=== PATIENT | male | born 1975 | race Hispanic/Latino ===

== ENCOUNTER 2018-08-16 20:02 | Inpatient (IN) | payer MEDICARE, OTHER ==
[~2018-08-16] VITALS: Ht 182.9 cm; Wt 149.2 kg
[2018-08-16] MEDS ORDERED: SODIUM CHLORIDE 0.9% 1000ML 1,000 ML IV ONE ×2 (20:38→22:26)
[2018-08-16] MEDS ORDERED: METOPROLOL TARTRATE 1 MG/ML 5ML VIAL IV ONE ×3 (20:38→23:57)
[2018-08-16 20:43] LABS: BASOPHILS % (AUTO) 0.7 % (0.0-5.0); EOSINOPHILS % (AUTO) 2.1 % (0.0-8.0); HEMATOCRIT 48.7 % (42-54); LYMPHOCYTES % (AUTO) 30.8 % (21.0-51.0); MEAN CORPUSCULAR HEMOGLOBIN 29.5 pg (27.0-33.0); MEAN CORPUSCULAR HGB CONC 33.9 g/dL (32.0-36.0); MONOCYTES % (AUTO) 13.3 % (3.0-13.0); NEUTROPHILS % (AUTO) 53.1 % (40.0-77.0); PLATELET COUNT (AUTO) 201 K/uL (130-400); RED CELL DISTRIBUTION WIDTH 15.2 % (11.0-15.5); WHITE BLOOD COUNT (AUTO) 5.5 K/uL (4.8-10.8)
[2018-08-16 20:55] LABS: CREATININE 1.3 mg/dL (0.5-1.5); POTASSIUM 3.8 mmol/L (3.5-5.1)
[2018-08-16 20:57] LABS: PARTIAL THROMBOPLASTIN TIME 28.2 SEC (26.3-35.5); PROTHROMBIN TIME 10.5 SEC (9.6-11.6)
[2018-08-16 20:57] LABS: APPEARANCE,URINE Clear (CLEAR); BILIRUBIN,URINE Negative (NEGATIVE); COLOR,URINE Yellow (YELLOW); GLUCOSE, URINE (UA) >=1000 mg/dL (NEGATIVE); KETONES,URINE Negative (NEGATIVE); LEUKOCYTE ESTERASE ,URINE Negative (NEGATIVE); NITRATE,URINE Negative (NEGATIVE); OCCULT BLOOD,URINE Trace (NEGATIVE); PH,URINE 5.5 (5.0-8.0); PROTEIN,URINE POS 2+ (NEGATIVE); UROBILINOGEN,URINE 0.2 mg/dL (0.2-1.0)
[2018-08-16 21:05] LABS: TROPONIN I 0.06 ng/mL (0.00-0.06)
[2018-08-16 21:05] LABS: AMPHET/METH SCREEN,URINE NEGATIVE (NEGATIVE); BARBITURATE SCREEN, URINE NEGATIVE (NEGATIVE); BENZODIAZEPINES SCREEN,URINE NEGATIVE (NEGATIVE); CANNABINOID SCREEN,URINE NEGATIVE (NEGATIVE); COCAINE SCREEN,URINE NEGATIVE (NEGATIVE); OPIATE SCREEN,URINE NEGATIVE (NEGATIVE); PHENCYCLIDINE SCREEN,URINE NEGATIVE (NEGATIVE)
[2018-08-16 21:07] LABS: BACTERIA,URINE Few /HPF (None Seen); MUCUS,URINE None Seen LPF (None Seen); RBC,URINE 0-1 /HPF (0-1); SQUAMOUS EPITHELIAL CELL,UR Rare /HPF (0-2); WBC,URINE 0-1 /HPF (0-1); YEAST,URINE BUDDING Rare /HPF (None Seen)
[2018-08-16 21:07] LABS: ALBUMIN 3.2 g/dL (3.5-5.0); BILIRUBIN,TOTAL 0.3 mg/dL (0.2-1.0); TOTAL PROTEIN, SERUM 7.1 g/dL (6.0-8.3)
[2018-08-16 21:08] LABS: COARSE GRANULAR CASTS,URINE 0-2 /LPF (None Seen)
[2018-08-16 21:20] LABS: RAPID GROUP A STREP NEGATIVE (NEGATIVE)
[2018-08-16] MEDS ORDERED: LEVOFLOXACIN 500 MG/D5W 100 ML 100 ML ONE (21:31)
[2018-08-17] MEDS ORDERED: AMIODARONE HCL 50 MG/ML 3 ML VIAL ONE ×3 (01:09→01:15)
[2018-08-17] MEDS ORDERED: DEXTROSE 5%-WATER 500 ML IV ONE (01:26)
[2018-08-17] MEDS ORDERED: LABETALOL HCL 5 MG/ML 20ML VIAL IV ONE (03:04)
[2018-08-17 03:20] VITALS: BP 163/109
[2018-08-17] MEDS ORDERED: ONDANSETRON HCL MDV 20ML 2 MG/ML VIAL IVP PRN (03:30)
[2018-08-17] MEDS ORDERED: DEXTROSE 50%-WATER 50 ML DISP.SYRIN IV PRN (03:30)
[2018-08-17] MEDS ORDERED: GLUCAGON 1MG KIT 1 MG ML IM PRN (03:30)
[2018-08-17] MEDS ORDERED: SODIUM CHLORIDE 0.9% 1000ML 2,000 ML IV ONE (03:30)
[2018-08-17] MEDS ORDERED: SODIUM CHLORIDE 0.9% 1000ML 1,000 ML IV SCH ×2 (04:30→09:00)
[2018-08-17] MEDS ORDERED: LOSA100T20 PO (04:37)
[2018-08-17] MEDS ORDERED: METO50TA18 PO (04:37)
[2018-08-17 04:50] LABS: BASOPHILS % (AUTO) 0.6 % (0.0-5.0); EOSINOPHILS % (AUTO) 2.2 % (0.0-8.0); HEMATOCRIT 45.7 % (42-54); LYMPHOCYTES % (AUTO) 31.8 % (21.0-51.0); MEAN CORPUSCULAR HEMOGLOBIN 28.6 pg (27.0-33.0); MEAN CORPUSCULAR HGB CONC 32.8 g/dL (32.0-36.0); MEAN CORPUSCULAR VOLUME 87.3 fL (79-99); NEUTROPHILS % (AUTO) 46.4 % (40.0-77.0); PLATELET COUNT (AUTO) 172 K/uL (130-400); RED BLOOD CELL COUNT(AUTO) 5.23 MIL/uL (4.50-6.20); WHITE BLOOD COUNT (AUTO) 5.6 K/uL (4.8-10.8)
[2018-08-17 05:17] LABS: ALBUMIN 2.9 g/dL (3.5-5.0); BILIRUBIN,TOTAL 0.2 mg/dL (0.2-1.0); CRP QUANTITATIVE 13.5 mg/L (0.00-9.0); POTASSIUM 3.8 mmol/L (3.5-5.1); THYROID STIMULATING HORMONE 1.58 uIU/mL (0.36-3.74); TOTAL PROTEIN, SERUM 6.8 g/dL (6.0-8.3)
[2018-08-17 05:57] LABS: HEMOGLOBIN A1C 8.2 % (4.0-6.0)
[2018-08-17] MEDS: INSULIN HUMULIN R 100 UNIT/ML 3ML SQ SCH ×4 (06:15→22:14)
[2018-08-17 07:00] VITALS: BP 161/94
[2018-08-17] MEDS ORDERED: AMIODARONE HCL 900 MG in DEXTROSE 5%-WATER 500 ML IV SCH (07:45)
[2018-08-17] MEDS: LOSARTAN 100 MG TABLET PO SCH (10:09)
[2018-08-17] MEDS: METOPROLOL TARTRATE 50 MG TAB PO SCH ×2 (10:09→22:08)
[2018-08-17 11:00] VITALS: BP 146/117
[2018-08-17] MEDS: LABETALOL HCL 5 MG/ML 20ML VIAL IV PRN ×2 (11:53→23:20)
[2018-08-17 16:00] VITALS: BP 143/103
[2018-08-17] MEDS ORDERED: ENOXAPARIN SODIUM 80 MG/0.8 ML SQ SCH (16:30)
[2018-08-17 19:21] VITALS: BP 162/116
[2018-08-17] MEDS ORDERED: METOPROLOL TARTRATE 50 MG TAB PO SCH (21:00)
[2018-08-17] MEDS: RIVAROXABAN 15 MG TABLET PO SCH (22:08)
[2018-08-17 23:45] VITALS: BP 155/109
[2018-08-18] VITALS (7 sets, daily range): BP systolic 142–171; BP diastolic 94–123
[2018-08-18] MEDS: ACETAMINOPHEN 325 MG TAB PO PRN ×2 (01:20→21:41)
[2018-08-18 04:30] LABS: BASOPHILS % (AUTO) 0.4 % (0.0-5.0); EOSINOPHILS % (AUTO) 1.6 % (0.0-8.0); HEMATOCRIT 46.9 % (42-54); LYMPHOCYTES % (AUTO) 24.9 % (21.0-51.0); MEAN CORPUSCULAR HGB CONC 33.8 g/dL (32.0-36.0); MEAN CORPUSCULAR VOLUME 88.7 fL (79-99); MONOCYTES % (AUTO) 14.2 % (3.0-13.0); NEUTROPHILS % (AUTO) 58.9 % (40.0-77.0); PLATELET COUNT (AUTO) 199 K/uL (130-400); RED BLOOD CELL COUNT(AUTO) 5.29 MIL/uL (4.50-6.20); RED CELL DISTRIBUTION WIDTH 15.4 % (11.0-15.5); WHITE BLOOD COUNT (AUTO) 7.2 K/uL (4.8-10.8)
[2018-08-18 04:46] LABS: ALBUMIN 3.1 g/dL (3.5-5.0); BILIRUBIN,TOTAL 0.3 mg/dL (0.2-1.0); CREATININE 0.9 mg/dL (0.5-1.5); POTASSIUM 3.9 mmol/L (3.5-5.1); TOTAL PROTEIN, SERUM 7.4 g/dL (6.0-8.3)
[2018-08-18] MEDS: INSULIN HUMULIN R 100 UNIT/ML 3ML SQ SCH ×4 (06:03→21:00)
[2018-08-18] MEDS: LOSARTAN 100 MG TABLET PO SCH (08:45)
[2018-08-18] MEDS: RIVAROXABAN 15 MG TABLET PO SCH ×2 (08:45→21:16)
[2018-08-18] MEDS: METOPROLOL TARTRATE 50 MG TAB PO SCH ×2 (08:45→21:16)
[2018-08-18] MEDS ORDERED: IOHEXOL 350 MG/ML 100ML INFUS..BTL IV ONE (15:11)
[2018-08-18] MEDS: LABETALOL HCL 5 MG/ML 20ML VIAL IV PRN (17:01)
[2018-08-19] VITALS (7 sets, daily range): BP systolic 107–174; BP diastolic 84–110
[2018-08-19 03:29] LABS: BASOPHILS % (AUTO) 0.4 % (0.0-5.0); HEMATOCRIT 44.9 % (42-54); MEAN CORPUSCULAR HEMOGLOBIN 29.1 pg (27.0-33.0); MEAN CORPUSCULAR HGB CONC 33.4 g/dL (32.0-36.0); MEAN CORPUSCULAR VOLUME 87.2 fL (79-99); MONOCYTES % (AUTO) 14.9 % (3.0-13.0); NEUTROPHILS % (AUTO) 55.7 % (40.0-77.0); PLATELET COUNT (AUTO) 171 K/uL (130-400); RED BLOOD CELL COUNT(AUTO) 5.15 MIL/uL (4.50-6.20); WHITE BLOOD COUNT (AUTO) 7.3 K/uL (4.8-10.8)
[2018-08-19 03:40] LABS: ALBUMIN 3.1 g/dL (3.5-5.0); BILIRUBIN,TOTAL 0.7 mg/dL (0.2-1.0); CREATININE 0.9 mg/dL (0.5-1.5); INR 1.12 (0.85-1.15); PARTIAL THROMBOPLASTIN TIME 35.9 SEC (26.3-35.5); POTASSIUM 3.7 mmol/L (3.5-5.1); PROTHROMBIN TIME 11.7 SEC (9.6-11.6); TOTAL PROTEIN, SERUM 7.4 g/dL (6.0-8.3)
[2018-08-19] MEDS: INSULIN HUMULIN R 100 UNIT/ML 3ML SQ SCH ×4 (06:28→21:00)
[2018-08-19] MEDS: LOSARTAN 100 MG TABLET PO SCH (08:49)
[2018-08-19] MEDS: METOPROLOL TARTRATE 50 MG TAB PO SCH ×2 (08:49→20:24)
[2018-08-19] MEDS: RIVAROXABAN 15 MG TABLET PO SCH (08:49)
[2018-08-19] MEDS: HYDROCHLOROTHIAZIDE 25 MG TABLET PO SCH (11:28)
[2018-08-19] MEDS: ACETAMINOPHEN 325 MG TAB PO PRN (11:29)
[2018-08-19] MEDS ORDERED: REGADENOSON 0.4 MG/5 ML PF SYG IVP SCH (12:30)
[2018-08-19] MEDS ORDERED: AMLODIPINE BESYLATE 5 MG TAB PO SCH (18:30)
[2018-08-20 03:00] VITALS: BP 145/103
[2018-08-20 04:14] LABS: BASOPHILS % (AUTO) 0.9 % (0.0-5.0); EOSINOPHILS % (AUTO) 3.1 % (0.0-8.0); HEMATOCRIT 45.6 % (42-54); LYMPHOCYTES % (AUTO) 25.8 % (21.0-51.0); MEAN CORPUSCULAR HEMOGLOBIN 28.9 pg (27.0-33.0); MEAN CORPUSCULAR HGB CONC 33.3 g/dL (32.0-36.0); MEAN CORPUSCULAR VOLUME 86.9 fL (79-99); NEUTROPHILS % (AUTO) 59.2 % (40.0-77.0); NUCLEATED RED BLOOD CELLS 0.1 % (0.0-0.19); PLATELET COUNT (AUTO) 192 K/uL (130-400); RED BLOOD CELL COUNT(AUTO) 5.25 MIL/uL (4.50-6.20); WHITE BLOOD COUNT (AUTO) 6.5 K/uL (4.8-10.8)
[2018-08-20 04:33] LABS: BILIRUBIN,TOTAL 0.7 mg/dL (0.2-1.0); CREATININE 0.8 mg/dL (0.5-1.5); POTASSIUM 3.4 mmol/L (3.5-5.1); TOTAL PROTEIN, SERUM 7.4 g/dL (6.0-8.3)
[2018-08-20] MEDS: INSULIN HUMULIN R 100 UNIT/ML 3ML SQ SCH (05:35)
[2018-08-20 07:00] VITALS: BP 174/104
[2018-08-20] MEDS: HYDROCHLOROTHIAZIDE 25 MG TABLET PO SCH (07:46)
[2018-08-20] MEDS: METOPROLOL TARTRATE 50 MG TAB PO SCH (07:46)
[2018-08-20] MEDS: LOSARTAN 100 MG TABLET PO SCH (07:46)
[2018-08-20 08:50] VITALS: BP 154/97
[2018-08-20] MEDS ORDERED: METF-444 PO (08:53)
[2018-08-20] MEDS ORDERED: AMLODIPINE BESYLATE 5 MG TAB PO SCH (09:00)
[2018-08-20] MEDS ORDERED: HYDROCHLOROTHIAZIDE 25 MG TABLET PO SCH (09:00)
[2018-08-20] MEDS ORDERED: RIVAROXABAN 20 MG TABLET PO SCH (17:00)
== END 2018-08-20 11:25 | disposition home or self-care (01) | DRG 292 ==
LOC: EDH 20:02 → EDHIP 21:50 → 3AH 23:44 → EDHIP 08-17 00:12 → 2DH 08-17 01:15
PROVIDERS: ADMIT Hospitalist; ATTEND Hospitalist
DX: I11.0 Hypertensive heart disease with heart failure (principal); E87.2 Acidosis; Z68.41 Body mass index [BMI] 40.0-44.9, adult; I48.92 Unspecified atrial flutter; I48.91 Unspecified atrial fibrillation; I50.40 Unspecified combined systolic (congestive) and diastolic (congestive) heart failure; R00.0 Tachycardia, unspecified; E11.65 Type 2 diabetes mellitus with hyperglycemia; E66.01 Morbid (severe) obesity due to excess calories; I25.10 Atherosclerotic heart disease of native coronary artery without angina pectoris
CPT/HCPCS: 36415; 71045; 71275; 78452; 80053; 80061; 80305; 81001; 82550; 82948; 83036; 83605; 83874; 84443; 84484; 85025; 85610; 85730; 86140; 87040; 87088; 87804; 87880; 93005; 93017; 93306; 93970; 96374; A9500; J0282; J1650; J1815; J1956; J2785; J3490; J7030; J7060; Q9967

== ENCOUNTER 2019-01-28 12:53 | Emergency (ER) | payer OTHER ==
[~2019-01-28 12:53] MED LIST: LOSA100T58 PO; METF-444 PO; METO50TA18 PO
== END 2019-01-28 14:49 | disposition home or self-care (01) ==
LOC: EDH 12:53
DX: S13.8XXA Sprain of joints and ligaments of other parts of neck, initial encounter (principal); I10 Essential (primary) hypertension; Z79.899 Other long term (current) drug therapy; V59.49XA Driver of pick-up truck or van injured in collision with other motor vehicles in traffic accident, initial encounter; Y93.89 Activity, other specified; Y92.89 Other specified places as the place of occurrence of the external cause; Y99.8 Other external cause status
CPT/HCPCS: 72040

== ENCOUNTER 2019-02-12 20:57 | Emergency (ER) | payer OTHER ==
[2019-02-12 21:13] LABS: BASOPHILS % (AUTO) 0.8 % (0.0-5.0); EOSINOPHILS % (AUTO) 1.5 % (0.0-8.0); HEMATOCRIT 52.5 % (42-54); LYMPHOCYTES % (AUTO) 36.8 % (21.0-51.0); MEAN CORPUSCULAR HEMOGLOBIN 29.6 pg (27.0-33.0); MEAN CORPUSCULAR VOLUME 86.9 fL (79-99); MONOCYTES % (AUTO) 10.9 % (3.0-13.0); NUCLEATED RED BLOOD CELLS 0.1 % (0.0-0.19); PLATELET COUNT (AUTO) 201 K/uL (130-400); RED BLOOD CELL COUNT(AUTO) 6.04 MIL/uL (4.50-6.20); WHITE BLOOD COUNT (AUTO) 7.3 K/uL (4.8-10.8)
[2019-02-12] MEDS ORDERED: LEVOFLOXACIN 500 MG/D5W 100 ML 100 ML ONE (21:13)
[2019-02-12] MEDS ORDERED: IBUPROFEN 600 MG TABLET ONE (21:13)
[2019-02-12 21:25] LABS: CARBON DIOXIDE 33 mmol/L (21-32); CHLORIDE 98 mmol/L (101-111); CREATININE 1.1 mg/dL (0.5-1.5); GLOMERULAR FILTR. RATE CALC 78 mL/min (>60); GLUCOSE,RANDOM 238 mg/dL (70-105); SODIUM SERUM 137 mmol/L (136-145); UREA NITROGEN, BLOOD 20 mg/dL (7-18)
[2019-02-12 21:27] LABS: INR 1.1 (0.85-1.15); PARTIAL THROMBOPLASTIN TIME 30.1 SEC (26.3-35.5); PROTHROMBIN TIME 11.5 SEC (9.6-11.6)
[2019-02-12 21:29] LABS: ALANINE AMINOTRANSFERASE 71 U/L (12-78); ALBUMIN 3.6 g/dL (3.5-5.0); ALCOHOL, BLOOD < 3 mg/dL (0-10); ASPARTATE AMINOTRANSFERASE 34 U/L (10-37); BILIRUBIN,TOTAL 0.3 mg/dL (0.2-1.0); TOTAL PROTEIN, SERUM 8.2 g/dL (6.0-8.3)
[2019-02-12 21:46] LABS: APPEARANCE,URINE Clear (CLEAR); BILIRUBIN,URINE Negative (NEGATIVE); COLOR,URINE Yellow (YELLOW); GLUCOSE, URINE (UA) >=1000 mg/dL (NEGATIVE); KETONES,URINE Negative (NEGATIVE); LEUKOCYTE ESTERASE ,URINE Negative (NEGATIVE); NITRATE,URINE Negative (NEGATIVE); OCCULT BLOOD,URINE Negative (NEGATIVE); PH,URINE 6.5 (5.0-8.0); PROTEIN,URINE POS 2+ mg/dL (NEGATIVE); UROBILINOGEN,URINE 0.2 mg/dL (0.2-1.0)
[2019-02-12 21:53] LABS: AMPHET/METH SCREEN,URINE NEGATIVE (NEGATIVE); BARBITURATE SCREEN, URINE NEGATIVE (NEGATIVE); BENZODIAZEPINES SCREEN,URINE NEGATIVE (NEGATIVE); CANNABINOID SCREEN,URINE NEGATIVE (NEGATIVE); COCAINE SCREEN,URINE NEGATIVE (NEGATIVE); OPIATE SCREEN,URINE NEGATIVE (NEGATIVE); PHENCYCLIDINE SCREEN,URINE NEGATIVE (NEGATIVE)
[2019-02-12 21:54] LABS: BACTERIA,URINE Rare /HPF (None Seen); RBC,URINE 0-1 /HPF (0-1); SQUAMOUS EPITHELIAL CELL,UR None Seen /HPF (0-2); WBC,URINE 0-1 /HPF (0-1)
[2019-02-12 22:03] LABS: T4 (THYROXINE) 6.1 ug/dL (4.7-13.3); THYROID STIMULATING HORMONE 1.99 uIU/mL (0.36-3.74)
[2019-02-12] MEDS ORDERED: METOPROLOL TARTRATE 1 MG/ML 5ML VIAL IV ONE (23:05)
== END 2019-02-12 23:40 | disposition home or self-care (01) ==
LOC: EDH 20:57
DX: I10 Essential (primary) hypertension (principal); E11.65 Type 2 diabetes mellitus with hyperglycemia; E86.0 Dehydration; R00.0 Tachycardia, unspecified; R50.9 Fever, unspecified; Z79.899 Other long term (current) drug therapy
CPT/HCPCS: 36415; 71045; 80053; 80305; 81001; 83605 ×2; 84436; 84443; 84484; 85025; 85610; 85730; 87040; 87088; 87804 ×2; 93005; 96365; 96366; 96375; 99284; G0480; J1956; J3490

== ENCOUNTER 2019-07-14 04:02 | Inpatient (IN) | payer OTHER ==
[~2019-07-14] VITALS: Ht 180.3 cm; Wt 145.5 kg
[2019-07-14] MEDS ORDERED: ASPIRIN 81MG TAB.CHEW ONE (04:32)
[2019-07-14] MEDS ORDERED: METOPROLOL TARTRATE 1 MG/ML 5ML VIAL IV ONE ×2 (04:32→05:52)
[2019-07-14 04:34] LABS: BASOPHILS % (AUTO) 1.1 % (0.0-5.0); EOSINOPHILS % (AUTO) 2.2 % (0.0-8.0); HEMATOCRIT 52.4 % (42-54); LYMPHOCYTES % (AUTO) 38.1 % (21.0-51.0); MEAN CORPUSCULAR HEMOGLOBIN 30.3 pg (27.0-33.0); MONOCYTES % (AUTO) 12.8 % (3.0-13.0); NEUTROPHILS % (AUTO) 45.8 % (40.0-77.0); NUCLEATED RED BLOOD CELLS 0.1 % (0.0-0.19); PLATELET COUNT (AUTO) 190 K/uL (130-400); RED BLOOD CELL COUNT(AUTO) 5.89 MIL/uL (4.50-6.20); RED CELL DISTRIBUTION WIDTH 13.3 % (11.0-15.5); WHITE BLOOD COUNT (AUTO) 7.3 K/uL (4.8-10.8)
[2019-07-14 04:39] LABS: CREATININE 0.9 mg/dL (0.5-1.5); POTASSIUM 4.4 mmol/L (3.5-5.1)
[2019-07-14 04:41] LABS: INR 0.95 (0.85-1.15); PARTIAL THROMBOPLASTIN TIME 26.1 SEC (26.3-35.5)
[2019-07-14 04:43] LABS: ALBUMIN 3.3 g/dL (3.5-5.0); BILIRUBIN,TOTAL 0.4 mg/dL (0.2-1.0)
[2019-07-14 05:00] LABS: B-TYPE NATRIURETIC PEPTIDE 62 pg/mL (0-100)
[2019-07-14] MEDS ORDERED: DILTIAZEM HCL 125 MG/25 ML VIAL IV ONE (05:58)
[2019-07-14] MEDS ORDERED: SODIUM CHLORIDE 0.9% 100 ML IV ONE (05:59)
[2019-07-14] MEDS ORDERED: METOPROLOL TARTRATE 1 MG/ML 5ML VIAL IV PRN (06:45)
[2019-07-14] MEDS ORDERED: ONDANSETRON HCL 4 MG/2 ML VIAL IV PRN (06:45)
[2019-07-14] MEDS ORDERED: NITROGLYCERIN 0.4 MG SL TAB SL PRN (06:45)
[2019-07-14 07:13] LABS: HEMOGLOBIN A1C 8.6 % (4.0-6.0)
[2019-07-14 07:22] LABS: CHOLESTEROL 235 mg/dL (<200); HDL CHOLESTEROL 16 mg/dL (29-71); LDL DIRECT 93 mg/dL (0-99); TRIGLYCERIDES 1119 mg/dL (30-200)
[2019-07-14] MEDS: INSULIN HUMULIN R 100 UNIT/ML 3ML SQ SCH ×4 (07:30→20:49)
[2019-07-14] MEDS ORDERED: ATORVASTATIN CALCIUM 20 MG TABLET ONE (07:41)
[2019-07-14] MEDS ORDERED: FAMOTIDINE 20MG TAB 20 MG TAB ONE (07:41)
[2019-07-14] MEDS ORDERED: ASPIRIN 325 MG TABLET ONE (07:41)
[2019-07-14] MEDS ORDERED: ENOXAPARIN SODIUM 40 MG/0.4 ML SYRINGE SQ ONE (07:42)
[2019-07-14] MEDS ORDERED: INSULIN HUMULIN R 100 UNIT/ML 3ML ONE (07:43)
[2019-07-14] MEDS: ENOXAPARIN SODIUM 40 MG/0.4 ML SYRINGE SQ SCH (09:00)
[2019-07-14] MEDS: FAMOTIDINE 20MG TAB 20 MG TAB PO SCH ×2 (09:00→20:44)
[2019-07-14] MEDS: ASPIRIN 325 MG TABLET PO SCH (09:00)
[2019-07-14] MEDS ORDERED: ACETAMINOPHEN 325 MG TAB ONE (12:39)
[2019-07-14 15:16] VITALS: BP 156/99
[2019-07-14] MEDS ORDERED: HYDR25TA PO (15:38)
[2019-07-14 16:00] VITALS: BP 168/103
[2019-07-14] MEDS: SODIUM CHLORIDE 0.9% 1000ML 1,000 ML IV SCH (16:59)
[2019-07-14] MEDS: DILTIAZEM 125MG+100 ML NS 125 ML IV PRN (17:00)
[2019-07-14] MEDS: LOSARTAN 100 MG TABLET PO SCH (17:27)
[2019-07-14] MEDS ORDERED: HYDROCHLOROTHIAZIDE 25 MG TABLET PO SCH (19:10)
[2019-07-14] MEDS ORDERED: LOSARTAN 100 MG TABLET PO SCH (19:10)
--- NOTE | 2019-07-14 19:30 | NUR ---
PT HAS BEEN ASSESSED AND NOTED TO BE ON CARDIZEM DRIP AND IN ATRIAL FLUTTER.
[2019-07-14 19:47] VITALS: BP 151/92
[2019-07-14] MEDS: ATORVASTATIN CALCIUM 20 MG TABLET PO SCH (20:44)
[2019-07-14] MEDS: METOPROLOL TARTRATE 50 MG TAB PO SCH (20:45)
[2019-07-14 23:46] VITALS: BP 122/80
--- NOTE | 2019-07-15 01:25 | NUR ---
ETL SOFTWARE ENGINEER ETHEL ADVISED NURSING STAFF OF PT IN A FLUTTER BUT THE HEART RATE DOWN TO 40'S AND 50'S. CARDIZEM DRIP WAS STOPPED AND WILL MONITOR PT.
--- NOTE | 2019-07-15 01:35 | NUR ---
HR RATE UP TO 70'S AND CARDIZEM DRIP REMAINS OFF. PT REMAINS SLEEPING.
--- NOTE | 2019-07-15 02:20 | NUR ---
PT IS RESTING COMFORTABLY AND WAS ADVISED OF DRIP OFF FOR NOW AND VERBALIZED UNDERSTANDING.
[2019-07-15 04:09] LABS: BASOPHILS % (AUTO) 1.3 % (0.0-5.0); EOSINOPHILS % (AUTO) 2.3 % (0.0-8.0); HEMATOCRIT 52.2 % (42-54); LYMPHOCYTES % (AUTO) 38.2 % (21.0-51.0); MEAN CORPUSCULAR HGB CONC 34.4 g/dL (32.0-36.0); MEAN CORPUSCULAR VOLUME 87.2 fL (79-99); MONOCYTES % (AUTO) 11.4 % (3.0-13.0); NEUTROPHILS % (AUTO) 46.8 % (40.0-77.0); NUCLEATED RED BLOOD CELLS 0.1 % (0.0-0.19); PLATELET COUNT (AUTO) 244 K/uL (130-400); RED BLOOD CELL COUNT(AUTO) 5.98 MIL/uL (4.50-6.20); RED CELL DISTRIBUTION WIDTH 13.8 % (11.0-15.5); WHITE BLOOD COUNT (AUTO) 7.4 K/uL (4.8-10.8)
[2019-07-15 04:31] LABS: ALBUMIN 3.4 g/dL (3.5-5.0); BILIRUBIN,TOTAL 0.8 mg/dL (0.2-1.0); POTASSIUM 4.3 mmol/L (3.5-5.1); THYROID STIMULATING HORMONE 2.16 uIU/mL (0.36-3.74); TOTAL PROTEIN, SERUM 8.1 g/dL (6.0-8.3)
--- NOTE | 2019-07-15 04:40 | NUR ---
DEVAN BEAUCHAMP PRODUCTION STAFF WORKER WAS NOTIFIED OF PT'S EKG CHANGES AND CARDIZEM DRIP OFF AND STILL OFF DUE TO A FLUTTER IN 30'S. ORDER FOR CARDIOLOGY CONSULT AND 2D ECHO NOTED.
[2019-07-15 07:00] VITALS: BP 147/88
[2019-07-15] MEDS: INSULIN HUMULIN R 100 UNIT/ML 3ML SQ SCH ×4 (07:30→20:53)
[2019-07-15] MEDS: METOPROLOL TARTRATE 50 MG TAB PO SCH ×2 (08:50→20:49)
[2019-07-15] MEDS: ASPIRIN 325 MG TABLET PO SCH (08:50)
[2019-07-15] MEDS: HYDROCHLOROTHIAZIDE 25 MG TABLET PO SCH (08:50)
[2019-07-15] MEDS: FAMOTIDINE 20MG TAB 20 MG TAB PO SCH ×2 (08:51→20:49)
[2019-07-15] MEDS: FENOFIBRATE NANOCRYSTALLIZED 48 MG TAB PO SCH (08:51)
[2019-07-15] MEDS: LOSARTAN 100 MG TABLET PO SCH (08:51)
[2019-07-15] MEDS: ENOXAPARIN SODIUM 40 MG/0.4 ML SYRINGE SQ SCH (08:52)
[2019-07-15] MEDS: SODIUM CHLORIDE 0.9% 1000ML 1,000 ML IV SCH ×3 (09:32→22:15)
[2019-07-15 11:00] VITALS: BP 150/97
[2019-07-15] MEDS ORDERED: DILTIAZEM 125MG+100 ML NS 125 ML IV PRN (11:30)
[2019-07-15] MEDS ORDERED: SODIUM CHLORIDE 0.9% 1000ML 1,000 ML IV SCH (12:38)
[2019-07-15 16:00] VITALS: BP 161/87
--- NOTE | 2019-07-15 19:40 | NUR ---
ASSESSMENT AWAKE. UP IN CHAIR. BROTHER AT BEDSIDE. DENIES PAIN. REMAINS ON CARDIZEM DRIP 5MG/HR. ASSESSMENT COMPLETED SEE FLOW SHEET. Addendum: 07/15/19 at 2235 by JOEY ALY RN RN Amended: Links added.
[2019-07-15 19:42] VITALS: BP 151/75
[2019-07-15] MEDS: ATORVASTATIN CALCIUM 20 MG TABLET PO SCH (20:49)
[2019-07-15 23:36] VITALS: BP 144/97
[2019-07-16] VITALS (11 sets, daily range): BP systolic 122–175; BP diastolic 70–119
[2019-07-16] MEDS: INSULIN HUMULIN R 100 UNIT/ML 3ML SQ SCH ×4 (03:40→21:19)
[2019-07-16] MEDS: SODIUM CHLORIDE 0.9% 1000ML 1,000 ML IV SCH ×2 (05:07→17:45)
[2019-07-16] MEDS: HYDROCHLOROTHIAZIDE 25 MG TABLET PO SCH (08:55)
[2019-07-16] MEDS: FAMOTIDINE 20MG TAB 20 MG TAB PO SCH ×2 (08:55→20:10)
[2019-07-16] MEDS: FENOFIBRATE NANOCRYSTALLIZED 48 MG TAB PO SCH (08:55)
[2019-07-16] MEDS: ASPIRIN 325 MG TABLET PO SCH (08:55)
[2019-07-16] MEDS: LOSARTAN 100 MG TABLET PO SCH (08:55)
[2019-07-16] MEDS: METOPROLOL TARTRATE 50 MG TAB PO SCH ×2 (08:55→20:10)
[2019-07-16] MEDS: ENOXAPARIN SODIUM 40 MG/0.4 ML SYRINGE SQ SCH (09:00)
[2019-07-16] MEDS: DILTIAZEM 125MG+100 ML NS 125 ML IV PRN ×2 (10:02→10:05)
[2019-07-16] MEDS: FENTANYL CITRATE PF 50 MCG/1 ML 2ML VIAL IVP SCH ×5 (13:00→15:11)
[2019-07-16] MEDS: LIDOCAINE HCL 2% VISCOUS 15 ML UDCUP PO SCH ×2 (13:00→13:30)
[2019-07-16] MEDS: MIDAZOLAM HCL 1 MG/ML 2ML VIAL IVPB SCH ×2 (13:00→14:30)
[2019-07-16] MEDS ORDERED: MIDAZOLAM HCL 1 MG/ML 2ML VIAL ONE (13:12)
[2019-07-16] MEDS ORDERED: FENTANYL CITRATE PF 50 MCG/1 ML 2ML VIAL ONE (13:17)
--- NOTE | 2019-07-16 14:04 | NUR ---
DC PLAN PATIENT LIVES WITH BROTHER. PATIENT RECENTLY FIRED AND LOST INSURNACE. GAVE LOW INCOME PACKET. PATIENT INDEPENDENT ABLE TO PERFORM ADL'S. PATIENT HAS NO SERVICES OR DME'S. FEELS SAFE TO RETURN HOME. Addendum: 07/16/19 at 1408 by MARY REID RN CM Amended: Links added.
--- NOTE | 2019-07-16 14:30 | NUR ---
JO PROCEDURE PERFORMED BY DR Connor JENKINS AND TOLERATED PROCEDURE. END OF PROCEDURE AT 1400. PATIENT RECOVERED IN 229-1. REPORT GIVEN TO Marian FERREIRA RN. AWAKE AND ALERT WITH NO C/O PAIN.
[2019-07-16] MEDS: ATORVASTATIN CALCIUM 20 MG TABLET PO SCH (20:10)
[2019-07-17] VITALS (13 sets, daily range): BP systolic 125–157; BP diastolic 58–120
[2019-07-17] MEDS: SODIUM CHLORIDE 0.9% 1000ML 1,000 ML IV SCH ×2 (04:15→09:57)
--- NOTE | 2019-07-17 05:41 | NUR ---
Patient remains Aflutter currently on Cardizem drip without complications.
--- NOTE | 2019-07-17 05:41 | NUR ---
orders New orders for lab draw in am
[2019-07-17 06:05] LABS: HEMATOCRIT 49.3 % (42-54); MEAN CORPUSCULAR HGB CONC 34.7 g/dL (32.0-36.0); MEAN CORPUSCULAR VOLUME 86.6 fL (79-99); PLATELET COUNT (AUTO) 212 K/uL (130-400); RED CELL DISTRIBUTION WIDTH 13.4 % (11.0-15.5); WHITE BLOOD COUNT (AUTO) 5.3 K/uL (4.8-10.8)
[2019-07-17 06:13] LABS: CREATININE 0.8 mg/dL (0.5-1.5); POTASSIUM 3.6 mmol/L (3.5-5.1)
[2019-07-17] MEDS: INSULIN HUMULIN R 100 UNIT/ML 3ML SQ SCH ×3 (06:20→16:30)
[2019-07-17 06:22] LABS: INR 1.02 (0.85-1.15); PROTHROMBIN TIME 10.7 SEC (9.6-11.6)
[2019-07-17 07:21] LABS: EOSINOPHILS % (MANUAL) 1 % (1-6); LYMPHOCYTES % (MANUAL) 33 % (22-44); MAN.DIFF COMMENT-IMPRESSION MANUAL DIFFERENTIAL; MONOCYTES % (MANUAL) 14 % (2-9); PLATELET MORPHOLOGY COMMENT ADEQUATE; REACTIVE LYMPHOCYTES 1 % (0-0); SEGMENTED NEUTROPHILS % 51 % (40-70)
[2019-07-17] MEDS: LOSARTAN 100 MG TABLET PO SCH (08:41)
[2019-07-17] MEDS: ASPIRIN 325 MG TABLET PO SCH (08:41)
[2019-07-17] MEDS: FENOFIBRATE NANOCRYSTALLIZED 48 MG TAB PO SCH (08:42)
[2019-07-17] MEDS: METOPROLOL TARTRATE 50 MG TAB PO SCH ×2 (08:42→20:34)
[2019-07-17] MEDS: HYDROCHLOROTHIAZIDE 25 MG TABLET PO SCH (08:42)
[2019-07-17] MEDS: FAMOTIDINE 20MG TAB 20 MG TAB PO SCH ×2 (08:42→20:34)
[2019-07-17] MEDS: ENOXAPARIN SODIUM 40 MG/0.4 ML SYRINGE SQ SCH (08:42)
[2019-07-17] MEDS: DILTIAZEM 125MG+100 ML NS 125 ML IV PRN (09:02)
--- NOTE | 2019-07-17 12:10 | NUR ---
PATIENT TAKEN TO SHIP PROPELLER FINISHER FOR ABLATION BY DR VELIZ
[2019-07-17] MEDS ORDERED: HEPARIN SODIUM 1000UNIT/ML 10ML VIAL ONE (12:29)
[2019-07-17] MEDS ORDERED: LIDOCAINE HCL 2% 20ML ONE (12:29)
[2019-07-17] MEDS ORDERED: MIDAZOLAM HCL 1 MG/ML 2ML VIAL ONE ×5 (12:56→14:27)
[2019-07-17] MEDS ORDERED: MEPERIDINE-PF 25 MG/ML SYG ONE ×5 (12:57→14:27)
--- NOTE | 2019-07-17 16:00 | NUR ---
PATIENT ARRIVED FROM DIESEL PILE HAMMER OPERATOR AT THIS TIME, POST ABLATION BY DR VELIZ; PATIENT AWAKE, ALERT, ORIENTED, AND ORDERED BEDREST X4 HOURS; DRESSING TO RIGHT GROIN CLEAN, DRY AND INTACT WITH NO BLEEDING OR BRUISING NOTED; WILL CONTINUE TO MONITOR; NO COMPLAINTS FROM PATIENT AT THIS TIME
[2019-07-17] MEDS: ATORVASTATIN CALCIUM 20 MG TABLET PO SCH (20:34)
[2019-07-18] VITALS (7 sets, daily range): BP systolic 153–176; BP diastolic 95–124
[2019-07-18] MEDS: INSULIN HUMULIN R 100 UNIT/ML 3ML SQ SCH ×4 (03:17→16:30)
[2019-07-18 04:31] LABS: BASOPHILS % (AUTO) 0.7 % (0.0-5.0); EOSINOPHILS % (AUTO) 1.4 % (0.0-8.0); LYMPHOCYTES % (AUTO) 26.9 % (21.0-51.0); MEAN CORPUSCULAR HEMOGLOBIN 30.1 pg (27.0-33.0); MEAN CORPUSCULAR VOLUME 88.4 fL (79-99); MONOCYTES % (AUTO) 12.6 % (3.0-13.0); NEUTROPHILS % (AUTO) 58.4 % (40.0-77.0); PLATELET COUNT (AUTO) 171 K/uL (130-400); RED BLOOD CELL COUNT(AUTO) 5.09 MIL/uL (4.50-6.20); RED CELL DISTRIBUTION WIDTH 13.2 % (11.0-15.5)
[2019-07-18 04:40] LABS: POTASSIUM 3.9 mmol/L (3.5-5.1)
[2019-07-18] MEDS: METOPROLOL TARTRATE 50 MG TAB PO SCH (07:54)
[2019-07-18] MEDS: LOSARTAN 100 MG TABLET PO SCH (07:54)
[2019-07-18] MEDS: HYDROCHLOROTHIAZIDE 25 MG TABLET PO SCH (07:54)
[2019-07-18] MEDS: FENOFIBRATE NANOCRYSTALLIZED 48 MG TAB PO SCH (07:54)
[2019-07-18] MEDS: FAMOTIDINE 20MG TAB 20 MG TAB PO SCH (07:54)
--- NOTE | 2019-07-18 10:46 | NUR ---
DR. Juani VELIZ IN ROOM SPEAKING WITH PT. RE:PLAN OF CARE; QUESTIONS ANSWERED BY DR. VELIZ. DR. VELIZ MADE AWARE RE:VS TREND, LATEST BP AND MEDICATION REGIMEN. NO NEW ORDERS RECEIVED FOR BP MANAGEMENT AT THIS TIME.
[2019-07-18] MEDS ORDERED: APIXABAN 5 MG TABLET PO SCH (11:00)
[2019-07-18] MEDS ORDERED: AMLODIPINE BESYLATE 5 MG TAB PO SCH (11:30)
[2019-07-18] MEDS ORDERED: ATOR20TA65 PO (16:18)
[2019-07-18] MEDS ORDERED: AMLO5TAB4 PO (16:18)
[2019-07-18] MEDS ORDERED: FENO48TA15 PO (16:18)
[2019-07-18] MEDS ORDERED: IBUPROFEN 600 MG TABLET PO SCH (17:00)
[2019-07-18] MEDS ORDERED: IBUPROFEN 400 MG TABLET ONE (17:21)
== END 2019-07-18 17:50 | disposition home or self-care (01) | DRG 274 ==
LOC: EDH 04:02 → OBSVTOIN 04:03 → EDHIP 04:03 → 2AH 14:57
PROVIDERS: ADMIT Hospitalist; ATTEND Hospitalist
PROC: 02563ZZ Destruction of Right Atrium, Percutaneous Approach (ICD-10-PCS; principal; 2019-07-14)
PROC: 4A0274Z Measurement of Cardiac Electrical Activity, Via Natural or Artificial Opening (ICD-10-PCS; 2019-07-14)
DX: I48.3 Typical atrial flutter (principal); E44.0 Moderate protein-calorie malnutrition; I50.32 Chronic diastolic (congestive) heart failure; Z68.41 Body mass index [BMI] 40.0-44.9, adult; I48.0 Paroxysmal atrial fibrillation; E11.9 Type 2 diabetes mellitus without complications; E66.01 Morbid (severe) obesity due to excess calories; I11.0 Hypertensive heart disease with heart failure; E78.5 Hyperlipidemia, unspecified; G47.33 Obstructive sleep apnea (adult) (pediatric); I42.9 Cardiomyopathy, unspecified; G89.29 Other chronic pain; Z72.0 Tobacco use; Z91.19 Patient's noncompliance with other medical treatment and regimen; Z82.49 Family history of ischemic heart disease and other diseases of the circulatory system
CPT/HCPCS: 36415; 71045; 80048; 80053; 80061; 82550; 82948; 83036; 83880; 84443; 84484; 85025; 85610; 85730; 93005; 93306; 93313; 93613; 93621; 93653; 99152; 99153; 99156; 99157; 99291; C1893; C1894; G0378; J1644; J1650; J1815; J2175; J2250; J3010; J3490; J7030

== ENCOUNTER 2019-09-27 15:18 | Emergency (ER) | payer OTHER ==
[~2019-09-27 15:18] MED LIST changes: +AMLO5TAB4 PO; +ATOR20TA65 PO; +FENO48TA15 PO; +HYDR25TA PO
[2019-09-27 15:43] LABS: BASOPHILS % (AUTO) 0.8 % (0.0-5.0); HEMATOCRIT 48.5 % (42-54); LYMPHOCYTES % (AUTO) 36.1 % (21.0-51.0); MEAN CORPUSCULAR HEMOGLOBIN 29.8 pg (27.0-33.0); MEAN CORPUSCULAR HGB CONC 34.2 g/dL (32.0-36.0); MEAN CORPUSCULAR VOLUME 87.3 fL (79-99); MONOCYTES % (AUTO) 10.2 % (3.0-13.0); NEUTROPHILS % (AUTO) 50.9 % (40.0-77.0); NUCLEATED RED BLOOD CELLS 0.1 % (0.0-0.19); PLATELET COUNT (AUTO) 182 K/uL (130-400); RED BLOOD CELL COUNT(AUTO) 5.56 MIL/uL (4.50-6.20); RED CELL DISTRIBUTION WIDTH 13.4 % (11.0-15.5)
[2019-09-27 15:55] LABS: POTASSIUM 4.5 mmol/L (3.5-5.1)
[2019-09-27 15:57] LABS: INR 0.98 (0.85-1.15); PARTIAL THROMBOPLASTIN TIME 21.8 SEC (26.3-35.5); PROTHROMBIN TIME 10.3 SEC (9.6-11.6)
[2019-09-27 16:00] LABS: ALBUMIN 3.7 g/dL (3.5-5.0); BILIRUBIN,TOTAL 0.6 mg/dL (0.2-1.0); TOTAL PROTEIN, SERUM 8.2 g/dL (6.0-8.3)
[2019-09-27] MEDS ORDERED: ASPIRIN 325 MG TABLET ONE (16:05)
[2019-09-27] MEDS ORDERED: NITROGLYCERIN 1GM/1 INCH PACKET TD ONE (16:06)
[2019-09-27] MEDS ORDERED: ACETAMINOPHEN 325 MG TAB ONE (20:14)
== END 2019-09-27 20:57 | disposition home or self-care (01) ==
LOC: EDH 15:18
DX: R07.89 Other chest pain (principal); I10 Essential (primary) hypertension; I48.91 Unspecified atrial fibrillation; E11.9 Type 2 diabetes mellitus without complications; Z98.890 Other specified postprocedural states
CPT/HCPCS: 36415; 80053; 82550; 84484; 85025; 85610; 85730; 93005

== ENCOUNTER 2020-07-02 19:47 | Emergency (ER) | payer OTHER ==
[2020-07-02 20:04] LABS: BASOPHILS % (AUTO) 0.5 % (0.0-5.0); EOSINOPHILS % (AUTO) 1.6 % (0.0-8.0); LYMPHOCYTES % (AUTO) 34.7 % (21.0-51.0); MEAN CORPUSCULAR HEMOGLOBIN 30.1 pg (27.0-33.0); MEAN CORPUSCULAR HGB CONC 34.2 g/dL (32.0-36.0); MEAN CORPUSCULAR VOLUME 87.9 fL (79-99); MONOCYTES % (AUTO) 10.2 % (3.0-13.0); NEUTROPHILS % (AUTO) 52.5 % (40.0-77.0); PLATELET COUNT (AUTO) 224 K/uL (130-400); RED BLOOD CELL COUNT(AUTO) 5.69 MIL/uL (4.50-6.20); WHITE BLOOD COUNT (AUTO) 8.2 K/uL (4.8-10.8)
[2020-07-02 20:13] LABS: POTASSIUM 3.9 mmol/L (3.5-5.1)
[2020-07-02 20:16] LABS: INR 0.88 (0.85-1.15); PARTIAL THROMBOPLASTIN TIME 26.3 SEC (26.3-35.5); PROTHROMBIN TIME 9.6 SEC (9.6-11.6)
[2020-07-02 20:18] LABS: BILIRUBIN,TOTAL 0.3 mg/dL (0.2-1.0); TOTAL PROTEIN, SERUM 8.5 g/dL (6.0-8.3)
[2020-07-02] MEDS ORDERED: ASPIRIN 325 MG TABLET ONE (21:24)
[2020-07-02] MEDS ORDERED: NITROGLYCERIN 0.4 MG SL TAB SL ONE (21:25)
[2020-07-02] MEDS ORDERED: HYDRALAZINE HCL 20 MG/ML VIAL ONE (22:03)
== END 2020-07-02 23:32 | disposition home or self-care (01) ==
LOC: EDH 19:47
DX: R07.89 Other chest pain (principal); E11.9 Type 2 diabetes mellitus without complications; I10 Essential (primary) hypertension; I48.91 Unspecified atrial fibrillation
CPT/HCPCS: 36415; 71045; 80053; 82550; 84484 ×2; 85025; 85610; 85730; 93005; 96374; 99285; J0360

== ENCOUNTER 2021-02-21 10:23 | Inpatient (IN) | payer BC, OTHER ==
[~2021-02-21] VITALS: Ht 180.3 cm; Wt 136.7 kg
[2021-02-21] MEDS ORDERED: ASPIRIN 325 MG TABLET ONE (10:45)
[2021-02-21] MEDS ORDERED: ATROPINE 1MG SYG IVP ONE (10:48)
[2021-02-21] MEDS ORDERED: MIDAZOLAM HCL 1 MG/ML 2ML VIAL ONE (10:49)
[2021-02-21] MEDS ORDERED: LIDOCAINE HCL 400MG/20ML VIAL ONE (10:49)
[2021-02-21] MEDS ORDERED: FENTANYL CITRATE PF 50 MCG/1 ML 2ML VIAL ONE (10:49)
[2021-02-21] MEDS ORDERED: NITROGLYCERIN 2 MG VIAL IV ONE (10:49)
[2021-02-21] MEDS ORDERED: IOHEXOL-350 50ML VIAL IV ONE (10:49)
[2021-02-21] MEDS ORDERED: IOHEXOL 350 MG/ML 100ML INFUS..BTL IV ONE (10:49)
[2021-02-21] MEDS ORDERED: HEPARIN 10,000 UNIT/10ML (1,000 UNIT/ML) VIAL ONE (10:49)
[2021-02-21] MEDS ORDERED: BIVALIRUDIN 250 MG/VIAL IV ONE (10:50)
[2021-02-21] MEDS ORDERED: METOPROLOL TARTRATE 1 MG/ML 5ML VIAL IV ONE (10:55)
[2021-02-21 10:58] LABS: BASOPHILS % (AUTO) 0.5 % (0.0-5.0); EOSINOPHILS % (AUTO) 3.6 % (0.0-8.0); HEMATOCRIT 49.6 % (42-54); LYMPHOCYTES % (AUTO) 33.3 % (21.0-51.0); MEAN CORPUSCULAR HEMOGLOBIN 29.7 pg (27.0-33.0); MEAN CORPUSCULAR HGB CONC 33.9 g/dL (32.0-36.0); MEAN CORPUSCULAR VOLUME 87.6 fL (79-99); MONOCYTES % (AUTO) 9.6 % (3.0-13.0); NEUTROPHILS % (AUTO) 52.5 % (40.0-77.0); PLATELET COUNT (AUTO) 193 K/uL (130-400); RED BLOOD CELL COUNT(AUTO) 5.66 MIL/uL (4.50-6.20); RED CELL DISTRIBUTION WIDTH 13.7 % (11.0-15.5); WHITE BLOOD COUNT (AUTO) 6.7 K/uL (4.8-10.8)
[2021-02-21] MEDS ORDERED: LABETALOL 20MG SYG IV ONE ×2 (11:00→11:55)
[2021-02-21 11:14] LABS: CREATININE 0.8 mg/dL (0.5-1.5); POTASSIUM 3.8 mmol/L (3.5-5.1)
[2021-02-21 11:17] LABS: ALBUMIN 3.7 g/dL (3.5-5.0); BILIRUBIN,TOTAL 0.6 mg/dL (0.2-1.0); TOTAL PROTEIN, SERUM 7.9 g/dL (6.0-8.3)
[2021-02-21 12:19] LABS: INR 1.05 (0.85-1.15); PROTHROMBIN TIME 11.4 SEC (9.6-11.6)
[2021-02-21 12:20] LABS: PARTIAL THROMBOPLASTIN TIME 28.8 SEC (26.3-35.5)
[2021-02-21] MEDS ORDERED: LACTULOSE 20 GM/30 ML UDCUP PO PRN (12:45)
[2021-02-21] MEDS ORDERED: ONDANSETRON 4MG INJ IV PRN (12:45)
[2021-02-21] MEDS ORDERED: ACETAMINOPHEN 325 MG TAB PO PRN ×2 (12:45)
[2021-02-21 12:53] LABS: HEMOGLOBIN A1C 7.3 % (4.0-6.0)
[2021-02-21 13:04] LABS: MAGNESIUM 1.9 mg/dL (1.80-2.40); THYROID STIMULATING HORMONE 1.25 uIU/mL (0.36-3.74)
[2021-02-21 14:36] LABS: APPEARANCE,URINE Clear (CLEAR); BILIRUBIN,URINE Negative (NEGATIVE); COLOR,URINE Dark Yellow (YELLOW); GLUCOSE, URINE (UA) Negative (NEGATIVE); KETONES,URINE Trace mg/dL (NEGATIVE); LEUKOCYTE ESTERASE ,URINE Negative (NEGATIVE); NITRATE,URINE Negative (NEGATIVE); OCCULT BLOOD,URINE Negative (NEGATIVE); PH,URINE 5.5 (5.0-8.0); PROTEIN,URINE 300 mg/dL (NEGATIVE)
[2021-02-21 15:07] LABS: BACTERIA,URINE Rare /HPF (None Seen); RBC,URINE 0-1 /HPF (0-1); SQUAMOUS EPITHELIAL CELL,UR Rare /HPF (0-2); WBC,URINE 0-1 /HPF (0-1)
[2021-02-21 15:08] LABS: MUCUS,URINE Few LPF (None Seen)
[2021-02-21] MEDS ORDERED: 0.9% NACL 500ML IV.SOLN 500 ML IV SCH (16:30)
[2021-02-21] MEDS ORDERED: HEPARIN 25,000 UNITS/250ML D5W 250 ML IV SCH (16:30)
[2021-02-21] MEDS: INSULIN HUMULIN R 100 UNIT/ML 3ML SQ SCH ×2 (16:30→21:00)
[2021-02-21] MEDS ORDERED: HEPARIN 25,000 UNITS/250ML D5W 250 ML IV ONE (17:05)
[2021-02-21] MEDS ORDERED: 0.9% NACL 250ML 500 ML IV ONE (17:06)
[2021-02-21 17:09] LABS: HEMATOCRIT 47.5 % (42-54); MEAN CORPUSCULAR HEMOGLOBIN 29.7 pg (27.0-33.0); MEAN CORPUSCULAR HGB CONC 34.3 g/dL (32.0-36.0); MEAN CORPUSCULAR VOLUME 86.5 fL (79-99); RED BLOOD CELL COUNT(AUTO) 5.49 MIL/uL (4.50-6.20); RED CELL DISTRIBUTION WIDTH 13.5 % (11.0-15.5); WHITE BLOOD COUNT (AUTO) 6.8 K/uL (4.8-10.8)
[2021-02-21 17:19] LABS: CREATININE 0.8 mg/dL (0.5-1.5); POTASSIUM 3.6 mmol/L (3.5-5.1)
[2021-02-21 17:20] LABS: INR 1.03 (0.85-1.15); PROTHROMBIN TIME 11.2 SEC (9.6-11.6)
[2021-02-21 17:21] LABS: PARTIAL THROMBOPLASTIN TIME 25.4 SEC (26.3-35.5)
[2021-02-21] MEDS ORDERED: ATORVASTATIN 20 MG TABLET PO SCH (21:00)
[2021-02-21] MEDS: ATORVASTATIN 20 MG TABLET PO SCH (21:00)
[2021-02-21] MEDS ORDERED: METOPROLOL TARTRATE 25 MG TAB PO SCH ×2 (21:00)
[2021-02-21] MEDS: FAMOTIDINE 20MG TAB PO SCH (21:00)
[2021-02-21 22:58] LABS: INR 1.05 (0.85-1.15); PROTHROMBIN TIME 11.4 SEC (9.6-11.6)
[2021-02-21 22:59] LABS: PARTIAL THROMBOPLASTIN TIME 48.1 SEC (26.3-35.5)
[2021-02-21] MEDS ORDERED: METOPROLOL TARTRATE 50 MG TAB ONE (23:50)
[2021-02-21] MEDS ORDERED: FAMOTIDINE 20MG TAB ONE (23:50)
[2021-02-21] MEDS ORDERED: ATORVASTATIN 40 MG TABLET ONE (23:50)
[2021-02-22] VITALS (11 sets, daily range): BP systolic 101–164; BP diastolic 56–94
[2021-02-22 00:12] LABS: INR 1.06 (0.85-1.15); PROTHROMBIN TIME 11.5 SEC (9.6-11.6)
[2021-02-22 00:13] LABS: PARTIAL THROMBOPLASTIN TIME 60.3 SEC (26.3-35.5)
[2021-02-22] MEDS ORDERED: HEPARIN 25,000 UNITS/250ML D5W 250 ML IV ONE (04:46)
[2021-02-22 06:24] LABS: BASOPHILS % (AUTO) 0.6 % (0.0-5.0); EOSINOPHILS % (AUTO) 3.9 % (0.0-8.0); HEMATOCRIT 47.8 % (42-54); LYMPHOCYTES % (AUTO) 37.2 % (21.0-51.0); MEAN CORPUSCULAR HGB CONC 32.8 g/dL (32.0-36.0); MEAN CORPUSCULAR VOLUME 88.4 fL (79-99); MONOCYTES % (AUTO) 9.7 % (3.0-13.0); PLATELET COUNT (AUTO) 191 K/uL (130-400); RED BLOOD CELL COUNT(AUTO) 5.41 MIL/uL (4.50-6.20); RED CELL DISTRIBUTION WIDTH 13.7 % (11.0-15.5); WHITE BLOOD COUNT (AUTO) 6.9 K/uL (4.8-10.8)
[2021-02-22 06:38] LABS: CREATININE 0.8 mg/dL (0.5-1.5); POTASSIUM 3.9 mmol/L (3.5-5.1)
[2021-02-22 06:43] LABS: INR 1.06 (0.85-1.15); PROTHROMBIN TIME 11.5 SEC (9.6-11.6)
[2021-02-22 06:45] LABS: PARTIAL THROMBOPLASTIN TIME 74.8 SEC (26.3-35.5)
[2021-02-22] MEDS ORDERED: NICARDIPINE 25MG INJ IV ONE (07:13)
[2021-02-22] MEDS ORDERED: IOHEXOL 350 MG/ML 100ML INFUS..BTL IV ONE (07:13)
[2021-02-22] MEDS ORDERED: FENTANYL CITRATE PF 50 MCG/1 ML 2ML VIAL ONE (07:14)
[2021-02-22] MEDS ORDERED: MIDAZOLAM HCL 1 MG/ML 2ML VIAL ONE (07:14)
[2021-02-22] MEDS: INSULIN HUMULIN R 100 UNIT/ML 3ML SQ SCH ×4 (07:30→20:06)
[2021-02-22] MEDS ORDERED: HEPARIN 10,000 UNIT/10ML (1,000 UNIT/ML) VIAL ONE (07:40)
[2021-02-22] MEDS ORDERED: HYDRALAZINE 20MG/ML VIAL ONE (07:42)
[2021-02-22] MEDS ORDERED: LABETALOL 20MG VIAL IV ONE (07:51)
[2021-02-22] MEDS ORDERED: CLOPIDOGREL 300MG TAB ONE (08:24)
[2021-02-22] MEDS ORDERED: ASPIRIN 325MG EC TAB PO ONE (08:25)
[2021-02-22] MEDS ORDERED: IOHEXOL-350 50ML VIAL IV ONE (08:31)
[2021-02-22] MEDS ORDERED: 0.9%NACL 1000ML 1,000 ML IV SCH (09:00)
[2021-02-22] MEDS ORDERED: ENOXAPARIN SODIUM 40 MG/0.4 ML SYRINGE SQ SCH (09:00)
[2021-02-22] MEDS ORDERED: HYDRALAZINE 20MG/ML VIAL IV PRN (09:00)
[2021-02-22] MEDS ORDERED: ASPIRIN 325 MG TABLET PO SCH (09:00)
[2021-02-22] MEDS: NIFEDIPINE ER 30 MG TAB PO SCH (11:53)
[2021-02-22] MEDS: FAMOTIDINE 20MG TAB PO SCH ×2 (11:54→20:06)
[2021-02-22] MEDS: LOSARTAN 100 MG TABLET PO SCH (11:54)
[2021-02-22] MEDS: METOPROLOL SUCCINATE 50 MG TAB.SR.24H PO SCH (20:06)
[2021-02-22] MEDS: ATORVASTATIN 20 MG TABLET PO SCH (20:06)
[2021-02-23 00:01] VITALS: BP 130/91
[2021-02-23 04:38] LABS: HEMATOCRIT 46.5 % (42-54); MEAN CORPUSCULAR HEMOGLOBIN 28.8 pg (27.0-33.0); MEAN CORPUSCULAR VOLUME 89.8 fL (79-99); RED BLOOD CELL COUNT(AUTO) 5.18 MIL/uL (4.50-6.20); WHITE BLOOD COUNT (AUTO) 7.1 K/uL (4.8-10.8)
[2021-02-23 04:41] VITALS: BP 141/87
[2021-02-23 04:43] LABS: HEMOGLOBIN A1C 7.1 % (4.0-6.0)
[2021-02-23 05:06] LABS: CREATININE 0.8 mg/dL (0.5-1.5); POTASSIUM 3.7 mmol/L (3.5-5.1); THYROID STIMULATING HORMONE 0.92 uIU/mL (0.36-3.74)
[2021-02-23] MEDS: INSULIN HUMULIN R 100 UNIT/ML 3ML SQ SCH ×3 (05:49→16:30)
[2021-02-23 08:00] VITALS: BP 153/91
[2021-02-23] MEDS: LOSARTAN 100 MG TABLET PO SCH (08:45)
[2021-02-23] MEDS: NIFEDIPINE ER 30 MG TAB PO SCH (08:45)
[2021-02-23] MEDS: METOPROLOL SUCCINATE 50 MG TAB.SR.24H PO SCH (08:46)
[2021-02-23] MEDS: FAMOTIDINE 20MG TAB PO SCH (08:46)
[2021-02-23] MEDS ORDERED: AMLODIPINE 5 MG TAB PO SCH (09:00)
[2021-02-23] MEDS ORDERED: ATORVASTATIN 10 MG TABLET PO SCH (09:00)
[2021-02-23] MEDS ORDERED: ASPIRIN 81MG CHEW TAB PO SCH (09:00)
[2021-02-23] MEDS ORDERED: CLOPIDOGREL 75MG TAB PO SCH (09:00)
[2021-02-23 12:00] VITALS: BP 147/90
[2021-02-23] MEDS ORDERED: ASPI-1005 PO (15:01)
[2021-02-23] MEDS ORDERED: LOSA100T2 PO (15:01)
[2021-02-23] MEDS ORDERED: CLOP75TA14 PO (15:01)
[2021-02-23] MEDS ORDERED: NIFE-40 PO (15:01)
[2021-02-23] MEDS ORDERED: AMLO5TAB4 PO (15:01)
[2021-02-23] MEDS ORDERED: ATOR20TA65 PO (15:01)
[2021-02-23] MEDS ORDERED: METO50TA9 PO (15:01)
[2021-02-23 16:56] VITALS: BP 147/96
[2021-02-23] MEDS: ATORVASTATIN 20 MG TABLET PO SCH (18:57)
[2021-02-23] MEDS ORDERED: PERFLUTREN PROTEIN-A MICROSPHR 0.22 MG/ML VIAL IV ONE (19:18)
== END 2021-02-23 19:19 | disposition home or self-care (01) | DRG 247 ==
LOC: EDH 10:23 → EDHIP 10:24 → OBSVTOIN 10:24 → 4AH 02-22 09:32
PROVIDERS: ADMIT Internal Medicine; ATTEND Internal Medicine
PROC: 027034Z Dilation of Coronary Artery, One Artery with Drug-eluting Intraluminal Device, Percutaneous Approach (ICD-10-PCS; principal; 2021-02-22)
PROC: 4A023N7 Measurement of Cardiac Sampling and Pressure, Left Heart, Percutaneous Approach (ICD-10-PCS; 2021-02-22)
PROC: B2111ZZ Fluoroscopy of Multiple Coronary Arteries using Low Osmolar Contrast (ICD-10-PCS; 2021-02-22)
DX: I25.110 Atherosclerotic heart disease of native coronary artery with unstable angina pectoris (principal); I50.32 Chronic diastolic (congestive) heart failure; Z68.41 Body mass index [BMI] 40.0-44.9, adult; I16.0 Hypertensive urgency; E78.5 Hyperlipidemia, unspecified; E11.9 Type 2 diabetes mellitus without complications; G47.33 Obstructive sleep apnea (adult) (pediatric); E66.01 Morbid (severe) obesity due to excess calories; I48.0 Paroxysmal atrial fibrillation; I11.0 Hypertensive heart disease with heart failure; Z83.3 Family history of diabetes mellitus; Z82.49 Family history of ischemic heart disease and other diseases of the circulatory system
CPT/HCPCS: 36415; 71045; 71250; 80048; 80053; 80061; 81001; 82550; 82948; 83036; 83735; 84443; 84484; 85025; 85027; 85347; 85610; 85730; 93005; 93356; 93454; 99156; 99157; C1769; C1887; C8929; C9600; G0378; J0360; J0461; J0583; J1644; J1815; J2250; J3010; J3490; J7050; Q9967

== ENCOUNTER 2021-02-28 11:59 | Emergency (ER) | payer SELFPAY ==
[~2021-02-28 11:59] MED LIST changes: +ASPI-1005 PO; +CLOP75TA14 PO; -HYDR25TA PO; +LOSA100T2 PO; -METO50TA18 PO; +METO50TA9 PO; +NIFE-40 PO
[2021-02-28 13:18] LABS: BASOPHILS % (AUTO) 0.5 % (0.0-5.0); EOSINOPHILS % (AUTO) 3.3 % (0.0-8.0); HEMATOCRIT 50.6 % (42-54); LYMPHOCYTES % (AUTO) 29.2 % (21.0-51.0); MEAN CORPUSCULAR HEMOGLOBIN 29.6 pg (27.0-33.0); MEAN CORPUSCULAR HGB CONC 34.2 g/dL (32.0-36.0); MEAN CORPUSCULAR VOLUME 86.5 fL (79-99); MONOCYTES % (AUTO) 10.6 % (3.0-13.0); NEUTROPHILS % (AUTO) 56.1 % (40.0-77.0); PLATELET COUNT (AUTO) 236 K/uL (130-400); RED BLOOD CELL COUNT(AUTO) 5.85 MIL/uL (4.50-6.20); RED CELL DISTRIBUTION WIDTH 13.2 % (11.0-15.5); WHITE BLOOD COUNT (AUTO) 6.6 K/uL (4.8-10.8)
[2021-02-28] MEDS ORDERED: ASPIRIN 325 MG TABLET ONE (13:24)
[2021-02-28 13:25] LABS: APPEARANCE,URINE Clear (CLEAR); BILIRUBIN,URINE Negative (NEGATIVE); COLOR,URINE Yellow (YELLOW); GLUCOSE, URINE (UA) 500 mg/dL (NEGATIVE); KETONES,URINE Negative (NEGATIVE); LEUKOCYTE ESTERASE ,URINE Negative (NEGATIVE); NITRATE,URINE Negative (NEGATIVE); OCCULT BLOOD,URINE Negative (NEGATIVE); PROTEIN,URINE POS 2+ mg/dL (NEGATIVE); UROBILINOGEN,URINE 0.2 mg/dL (0.2-1.0)
[2021-02-28 13:26] LABS: CREATININE 0.8 mg/dL (0.5-1.5); POTASSIUM 3.9 mmol/L (3.5-5.1)
[2021-02-28 13:28] LABS: RBC,URINE 0-1 /HPF (0-1); WBC,URINE 0-1 /HPF (0-1)
[2021-02-28 13:29] LABS: AMPHET/METH SCREEN,URINE NEGATIVE (NEGATIVE); BACTERIA,URINE Rare /HPF (None Seen); BARBITURATE SCREEN, URINE NEGATIVE (NEGATIVE); BENZODIAZEPINES SCREEN,URINE NEGATIVE (NEGATIVE); CANNABINOID SCREEN,URINE NEGATIVE (NEGATIVE); COCAINE SCREEN,URINE NEGATIVE (NEGATIVE); OPIATE SCREEN,URINE NEGATIVE (NEGATIVE); PHENCYCLIDINE SCREEN,URINE NEGATIVE (NEGATIVE); SQUAMOUS EPITHELIAL CELL,UR Rare /HPF (0-2)
[2021-02-28 13:31] LABS: ALBUMIN 3.9 g/dL (3.5-5.0); BILIRUBIN,TOTAL 0.6 mg/dL (0.2-1.0); TOTAL PROTEIN, SERUM 8.5 g/dL (6.0-8.3)
[2021-02-28 13:47] LABS: B-TYPE NATRIURETIC PEPTIDE 14 pg/mL (0-100)
== END 2021-02-28 14:27 | disposition home or self-care (01) ==
LOC: EDH 11:59
DX: M79.601 Pain in right arm (principal); E11.65 Type 2 diabetes mellitus with hyperglycemia; I10 Essential (primary) hypertension; E11.9 Type 2 diabetes mellitus without complications; I48.91 Unspecified atrial fibrillation; E78.00 Pure hypercholesterolemia, unspecified; Z98.890 Other specified postprocedural states
CPT/HCPCS: 36415; 71045; 80053; 80305; 81001; 82550; 83880; 84484; 85025; 93005; 93971

== ENCOUNTER 2022-02-19 13:45 | Emergency (ER) | payer OTHER, BC ==
[~2022-02-19] VITALS: Ht 180.3 cm; Wt 129.3 kg
[2022-02-19 14:00] LABS: BASOPHILS % (AUTO) 0.6 % (0.0-5.0); EOSINOPHILS % (AUTO) 1.8 % (0.0-8.0); LYMPHOCYTES % (AUTO) 32.5 % (21.0-51.0); MEAN CORPUSCULAR HEMOGLOBIN 29.4 pg (27.0-33.0); MEAN CORPUSCULAR HGB CONC 33.3 g/dL (32.0-36.0); MEAN CORPUSCULAR VOLUME 88.4 fL (79-99); MONOCYTES % (AUTO) 11.1 % (3.0-13.0); NEUTROPHILS % (AUTO) 53.4 % (40.0-77.0); PLATELET COUNT (AUTO) 241 K/uL (130-400); RED BLOOD CELL COUNT(AUTO) 5.54 MIL/uL (4.50-6.20); RED CELL DISTRIBUTION WIDTH 13.2 % (11.0-15.5); WHITE BLOOD COUNT (AUTO) 6.6 K/uL (4.8-10.8)
[2022-02-19 14:22] LABS: ALBUMIN 3.5 g/dL (3.5-5.0); BILIRUBIN,TOTAL 0.5 mg/dL (0.2-1.0); CREATININE 0.7 mg/dL (0.5-1.5); MAGNESIUM 1.9 mg/dL (1.80-2.40); POTASSIUM 3.9 mmol/L (3.5-5.1); TOTAL PROTEIN, SERUM 7.7 g/dL (6.0-8.3)
[2022-02-19] MEDS ORDERED: METOPROLOL TARTRATE 50 MG TAB PO ONE (15:00)
[2022-02-19 15:56] VITALS: BP 108/73
[2022-03-20] MEDS ORDERED: ATOR40TA69 PO (11:11)
[2022-03-20] MEDS ORDERED: AEC81 PO (11:11)
[2022-03-20] MEDS ORDERED: APIX5TAB PO (11:11)
[2022-03-20] MEDS ORDERED: METO-409 PO (11:11)
[2022-03-20] MEDS ORDERED: VERA180C2 PO (11:11)
[2022-03-20] MEDS ORDERED: LOSA100T58 PO (11:11)
== END 2022-02-19 15:56 | disposition home or self-care (01) ==
LOC: EDH 13:45
DX: I48.91 Unspecified atrial fibrillation (principal); I48.92 Unspecified atrial flutter; I10 Essential (primary) hypertension; E11.9 Type 2 diabetes mellitus without complications; Z79.82 Long term (current) use of aspirin; Z79.84 Long term (current) use of oral hypoglycemic drugs; Z79.899 Other long term (current) drug therapy; Z95.5 Presence of coronary angioplasty implant and graft
CPT/HCPCS: 36415; 71045; 80053; 83735; 84484; 85025; 93005

== ENCOUNTER 2022-02-20 18:04 | Inpatient (IN) | payer OTHER, BC ==
[~2022-02-20] VITALS: Ht 180.3 cm; Wt 129.5 kg
[2022-02-20 18:53] LABS: HEMATOCRIT 49.2 % (42-54); MEAN CORPUSCULAR HGB CONC 32.7 g/dL (32.0-36.0); MEAN CORPUSCULAR VOLUME 88.5 fL (79-99); RED BLOOD CELL COUNT(AUTO) 5.56 MIL/uL (4.50-6.20); RED CELL DISTRIBUTION WIDTH 13.1 % (11.0-15.5); WHITE BLOOD COUNT (AUTO) 7.9 K/uL (4.8-10.8)
[2022-02-20] MEDS ORDERED: DEXTROSE 50%-WATER 50 ML DISP.SYRIN IV PRN (19:00)
[2022-02-20] MEDS ORDERED: 0.9%NACL 10ML VIAL IVP PRN (19:00)
[2022-02-20 19:06] LABS: POTASSIUM 4.1 mmol/L (3.5-5.1)
[2022-02-20 19:13] LABS: ALBUMIN 3.4 g/dL (3.5-5.0); BILIRUBIN,TOTAL 0.2 mg/dL (0.2-1.0); TOTAL PROTEIN, SERUM 7.6 g/dL (6.0-8.3)
[2022-02-20 19:27] LABS: PROTHROMBIN TIME 10.9 SEC (9.6-11.6)
[2022-02-20 19:29] LABS: PARTIAL THROMBOPLASTIN TIME 27.6 SEC (26.3-35.5)
[2022-02-20] MEDS: ATORVASTATIN 40 MG TABLET PO SCH (20:10)
[2022-02-20] MEDS: METOPROLOL SUCCINATE 50 MG TAB.SR.24H PO SCH (20:10)
[2022-02-20] MEDS ORDERED: INSULIN R PO SS1 SQ SCH (21:00)
[2022-02-20] MEDS: ENOXAPARIN SODIUM 120 MG/0.8ML SQ SCH (21:13)
[2022-02-20 22:27] VITALS: BP 140/96
[2022-02-20 23:53] VITALS: BP 121/77
[2022-02-21 04:18] VITALS: BP 118/72
[2022-02-21 04:44] LABS: HEMOGLOBIN A1C 8.8 % (4.0-6.0)
[2022-02-21 04:53] LABS: CHOLESTEROL 161 mg/dL (<200); HDL CHOLESTEROL 26 mg/dL (29-71); LDL DIRECT 96 mg/dL (0-99); TRIGLYCERIDES 277 mg/dL (30-200)
[2022-02-21 07:00] VITALS: BP 130/78
[2022-02-21] MEDS: ASPIRIN 81MG CHEW TAB PO SCH (08:03)
[2022-02-21] MEDS: AMLODIPINE 5 MG TAB PO SCH (08:04)
[2022-02-21] MEDS: CLOPIDOGREL 75MG TAB PO SCH (08:04)
[2022-02-21] MEDS: FAMOTIDINE 20MG TAB PO SCH ×2 (08:05→20:05)
[2022-02-21] MEDS: LOSARTAN 100 MG TABLET PO SCH (08:07)
[2022-02-21] MEDS: METOPROLOL SUCCINATE 50 MG TAB.SR.24H PO SCH ×2 (08:07→20:05)
[2022-02-21] MEDS: ENOXAPARIN SODIUM 120 MG/0.8ML SQ SCH (08:08)
[2022-02-21] MEDS: INSULIN HUMULIN R 100 UNIT/ML 3ML SQ SCH ×6 (08:09→20:12)
[2022-02-21] MEDS: FISH OIL 1000 MG/CAP PO SCH ×2 (08:59→20:05)
[2022-02-21 11:00] VITALS: BP 140/81
[2022-02-21] MEDS: APIXABAN 5 MG TABLET PO SCH ×2 (12:03→20:05)
[2022-02-21] MEDS ORDERED: PERFLUTREN PROTEIN-A MICROSPHR 0.22 MG/ML VIAL IV ONE (12:18)
[2022-02-21 16:00] VITALS: BP 115/70
[2022-02-21 20:00] VITALS: BP 109/62
[2022-02-21] MEDS: ATORVASTATIN 40 MG TABLET PO SCH (20:05)
[2022-02-21] MEDS ORDERED: INSULIN GLARGINE 100 UNITS/ML 10 ML VIAL SQ SCH (21:00)
[2022-02-21] MEDS ORDERED: ACETAMINOPHEN 325 MG TAB PO ONE (21:30)
[2022-02-21 23:55] VITALS: BP 139/80
[2022-02-22 04:00] VITALS: BP 121/79
[2022-02-22] MEDS: INSULIN HUMULIN R 100 UNIT/ML 3ML SQ SCH ×6 (06:16→16:14)
[2022-02-22 08:00] VITALS: BP 138/84
[2022-02-22] MEDS: APIXABAN 5 MG TABLET PO SCH (08:38)
[2022-02-22] MEDS: METOPROLOL SUCCINATE 50 MG TAB.SR.24H PO SCH (08:38)
[2022-02-22] MEDS: FAMOTIDINE 20MG TAB PO SCH (08:38)
[2022-02-22] MEDS: FISH OIL 1000 MG/CAP PO SCH (08:38)
[2022-02-22] MEDS: AMLODIPINE 5 MG TAB PO SCH (08:39)
[2022-02-22] MEDS: LOSARTAN 100 MG TABLET PO SCH (08:39)
[2022-02-22] MEDS: ASPIRIN 81MG CHEW TAB PO SCH (08:39)
[2022-02-22] MEDS: CLOPIDOGREL 75MG TAB PO SCH (08:39)
[2022-02-22 12:02] VITALS: BP 126/78
[2022-02-22 15:51] VITALS: BP 118/85
[2022-02-22] MEDS ORDERED: APIX5TAB PO (16:22)
[2022-02-22] MEDS ORDERED: EMPA25TA PO (16:22)
== END 2022-02-22 17:00 | disposition home or self-care (01) | DRG 309 ==
LOC: EDH 18:04 → EDHIP 18:05 → 2DH 22:19
PROVIDERS: ADMIT Internal Medicine; ATTEND Internal Medicine
DX: I48.92 Unspecified atrial flutter (principal); I50.22 Chronic systolic (congestive) heart failure; Z68.41 Body mass index [BMI] 40.0-44.9, adult; I11.0 Hypertensive heart disease with heart failure; E11.9 Type 2 diabetes mellitus without complications; E78.5 Hyperlipidemia, unspecified; I25.10 Atherosclerotic heart disease of native coronary artery without angina pectoris; I48.91 Unspecified atrial fibrillation; E66.01 Morbid (severe) obesity due to excess calories; Z79.82 Long term (current) use of aspirin; Z95.5 Presence of coronary angioplasty implant and graft; Z82.49 Family history of ischemic heart disease and other diseases of the circulatory system
CPT/HCPCS: 36415; 71045; 80053; 80061; 82948; 83036; 83735; 83880; 84484; 85027; 85610; 85730; 93005; 96374; C8929; G0378; J1650; J1815

== ENCOUNTER 2022-03-21 07:29 | Observation (INO) | payer OTHER ==
[2022-03-17 14:33] LABS: BASOPHILS % (AUTO) 0.4 % (0.0-5.0); EOSINOPHILS % (AUTO) 1.2 % (0.0-8.0); HEMATOCRIT 48.9 % (42-54); LYMPHOCYTES % (AUTO) 33.4 % (21.0-51.0); MEAN CORPUSCULAR HEMOGLOBIN 29.9 pg (27.0-33.0); MEAN CORPUSCULAR HGB CONC 33.3 g/dL (32.0-36.0); MEAN CORPUSCULAR VOLUME 89.6 fL (79-99); MONOCYTES % (AUTO) 11.6 % (3.0-13.0); NEUTROPHILS % (AUTO) 53.3 % (40.0-77.0); PLATELET COUNT (AUTO) 228 K/uL (130-400); RED BLOOD CELL COUNT(AUTO) 5.46 MIL/uL (4.50-6.20); RED CELL DISTRIBUTION WIDTH 13.4 % (11.0-15.5); WHITE BLOOD COUNT (AUTO) 6.8 K/uL (4.8-10.8)
[2022-03-17 14:55] LABS: INR 1.1 (0.85-1.15); PROTHROMBIN TIME 11.9 SEC (9.6-11.6)
[2022-03-17 14:57] LABS: PARTIAL THROMBOPLASTIN TIME 29.6 SEC (26.3-35.5)
[2022-03-17 14:59] LABS: CREATININE 0.9 mg/dL (0.5-1.5); POTASSIUM 4.1 mmol/L (3.5-5.1)
[2022-03-20 10:49] VITALS: BP 173/103
[~2022-03-21] VITALS: Ht 180.3 cm; Wt 131.5 kg
[~2022-03-21 07:29] MED LIST changes: +AEC81 PO; -AMLO5TAB4 PO; +APIX5TAB PO; -ASPI-1005 PO; -ATOR20TA65 PO; +ATOR40TA69 PO; -CLOP75TA14 PO; -FENO48TA15 PO; -LOSA100T2 PO; +METO-409 PO; -METO50TA9 PO; -NIFE-40 PO; +VERA180C2 PO
[2022-03-21 08:00] VITALS: BP 178/89
[2022-03-21] MEDS ORDERED: 0.9%NACL 1000ML 1,000 ML IV ONE (08:04)
[2022-03-21 18:56] VITALS: BP 131/85
[2022-03-21 19:25] VITALS: BP 139/82
[2022-03-21] MEDS ORDERED: APIXABAN 5 MG TABLET PO ONE (19:30)
[2022-03-21] MEDS: METFORMIN HCL 500 MG TABLET PO SCH (20:36)
[2022-03-21] MEDS: METOPROLOL SUCCINATE 50 MG TAB.SR.24H PO SCH (20:36)
[2022-03-21] MEDS ORDERED: ATORVASTATIN 40 MG TABLET PO SCH (21:00)
[2022-03-21 22:43] VITALS: BP 154/94
[2022-03-22] VITALS (9 sets, daily range): BP systolic 122–151; BP diastolic 78–98
[2022-03-22] MEDS ORDERED: LIDOCAINE HCL 1% MDV 50ML VIAL ONE (07:20)
[2022-03-22] MEDS ORDERED: HEPARIN 1,000 UNIT VIAL ONE (07:21)
[2022-03-22] MEDS ORDERED: MIDAZOLAM HCL 1 MG/ML 2ML VIAL ONE ×2 (07:22→08:07)
[2022-03-22] MEDS ORDERED: MEPERIDINE-PF 25 MG/ML SYG ONE ×2 (07:22→08:07)
[2022-03-22] MEDS ORDERED: LOSARTAN 100 MG TABLET PO SCH (09:00)
[2022-03-22] MEDS ORDERED: ASPIRIN 81 MG EC TAB PO SCH (09:00)
[2022-03-22] MEDS ORDERED: AMLO-257 PO (09:28)
[2022-03-22] MEDS ORDERED: AMLODIPINE 5 MG TAB PO SCH (10:00)
[2022-03-22] MEDS: METFORMIN HCL 500 MG TABLET PO SCH (10:02)
[2022-03-22] MEDS: METOPROLOL SUCCINATE 50 MG TAB.SR.24H PO SCH (10:03)
== END 2022-03-22 13:52 | disposition home or self-care (01) ==
LOC: DAH 07:29 → 2DH 07:30 → DAH 07:30
PROVIDERS: ADMIT Internal Medicine Cardiovascular Disease; ATTEND Internal Medicine Cardiovascular Disease
DX: I48.3 Typical atrial flutter (principal); I10 Essential (primary) hypertension; E11.9 Type 2 diabetes mellitus without complications; I42.9 Cardiomyopathy, unspecified; Z79.899 Other long term (current) drug therapy; Z98.890 Other specified postprocedural states
CPT/HCPCS: 36415; 80048; 82948 ×3; 85025; 85610; 85730; 93005 ×3; 93653; A4215; A4216; A4221; A4222; A4223 ×3; A4606; A4649 ×2; A4663; C1730; C1732; C1894 ×2; G0378 ×20; J1644 ×2; J2175 ×2; J2250 ×2; J3490; J7030; 99156; 99157

== ENCOUNTER 2024-12-09 09:59 | Emergency (ER) | payer BC, OTHER ==
[~2024-12-09] VITALS: Ht 180.3 cm; Wt 122.5 kg
[~2024-12-09 09:59] MED LIST changes: +AMLO-257 PO; -LOSA100T58 PO; +LOSA100T59 PO; -VERA180C2 PO
--- NOTE | 2024-12-09 10:27 | EKG ---
[facility] Test Date: 2024-12-09 Test Time: 10:22:43 Pat Name: MECCA ALVARENGA Department: ED Room: Gender: M Balance Truer: [facility] : 1975 Requested By: MARILYN ESPINOZA Order Number: [id number] Reading MD: Erin Barajas Measurements Intervals [place] Rate: 93 P: 0 TX: 160 QRS: 33 QRSD: 94 T: 57 QT: 345 QTc: 430 Interpretive Statements Sinus rhythm Consider anteroseptal infarct Compared to ECG 03/22/2022 12:55:04 Myocardial infarct finding now present First degree AV block no longer present Electronically Signed On 12-10-2024 17:09:21 CASINO HOST by Erin Barajas Please click the below link to view image of tracing.
[2024-12-09 10:35] LABS: BASOPHILS # (AUTO) 0.03 K/uL (0.00-0.20); BASOPHILS % (AUTO) 0.5 % (0.0-5.0); EOSINOPHILS # (AUTO) 0.09 K/uL (0.00-0.70); EOSINOPHILS % (AUTO) 1.6 % (0.0-8.0); HEMATOCRIT 48.6 % (42-54); IMMATURE GRANULOCYTE ABSOLUTE 0.02 K/uL (0-1); LYMPHOCYTES # (AUTO) 1.7 K/uL (1.0-4.8); LYMPHOCYTES % (AUTO) 29.6 % (21.0-51.0); MEAN CORPUSCULAR HEMOGLOBIN 30.3 pg (27.0-33.0); MEAN CORPUSCULAR HGB CONC 33.7 g/dL (32.0-36.0); MEAN CORPUSCULAR VOLUME 89.8 fL (79-99); MONOCYTES # (AUTO) 0.6 K/uL (0.1-1.0); MONOCYTES % (AUTO) 10.1 % (3.0-13.0); NEUTROPHILS # (AUTO) 3.3 K/uL (1.8-7.7); NEUTROPHILS % (AUTO) 57.8 % (40.0-77.0); PLATELET COUNT (AUTO) 218 K/uL (130-400); RED BLOOD CELL COUNT(AUTO) 5.41 MIL/uL (4.50-6.20); WHITE BLOOD COUNT (AUTO) 5.7 K/uL (4.8-10.8)
[2024-12-09 10:47] LABS: POTASSIUM 4.2 mmol/L (3.5-5.1)
[2024-12-09 10:52] LABS: MAGNESIUM 1.7 mg/dL (1.80-2.40)
[2024-12-09 10:55] LABS: B-TYPE NATRIURETIC PEPTIDE 17 pg/mL (0-100)
--- NOTE | 2024-12-09 11:05 | ERN ---
General Chief Complaint: Chest Pain Stated Complaint: PALPITATIONS HX OF A FIBB Time Seen by MD: 10:01 Time Seen by Midlevel: 10:01 Source: patient History of Present Illness Initial Comments Patient is a 41-year-old male with a past medical history of atrial fibrillation presenting to the emergency department after a brief episode of palpitations that occurred prior to arrival. Patient states he felt flutter like sensation in his chest that lasted less than 5 seconds. He became concerned throughout the day so he decided to report to the ER for further evaluation. On arrival he denies any palpitations, chest pain, shortness for breath, or any other symptoms at this time. Allergies: Coded Allergies: No Known Allergies (Unverified Allergy, Unknown, 08/17/18) No Known Drug Allergies (Unverified Allergy, Unknown, 09/27/19) Home Meds Active Scripts Amlodipine Besylate (Amlodipine Besylate) 5 Mg Tablet, 5 MG PO DAILY, #30 TAB 3 Refills Prov:AGGIE VELIZ MD 03/22/22 Metformin HCl (Metformin HCl) 500 Mg Tablet, 500 MG PO BID for 30 Days, TAB Prov:LAUREN KRAFT NP 08/20/18 Reported Medications Atorvastatin Calcium (LIPITOR) 40 Mg Tablet, 40 MG PO HS, TAB 03/20/22 Aspirin (ASPIRIN 81 MG ECTAB) 81 Mg Ectab, 81 MG PO DAILY, TAB.EC 03/20/22 Apixaban (Eliquis) 5 Mg Tablet, 5 MG PO BID, TAB 03/20/22 Metoprolol Succinate (Metoprolol Succinate) 100 Mg Tab.er.24h, 100 MG PO TID, TAB 03/20/22 Losartan Potassium (Losartan Potassium) 100 Mg Tablet, 100 MG PO DAILY, TAB 03/20/22 Past Medical History Past Medical History: A-Fib, Diabetes-Type II, High Cholesterol, Hypertension Past Surgical History: Other Surgical History Other: HEART STENTS, ABLATION Social History Social History: Other ROS Dictation CONSTITUTIONAL: Negative except for HPI HEAD/FACE: Negative except for HPI EENT: Negative except for HPI RESPIRATORY: Negative except for HPI GASTROINTESTINAL/ABDOMINAL: Negative except for HPI GENITOURINARY: Negative except for HPI MUSCULOSKELETAL: Negative except for HPI INTEGUMENTARY: Negative except for HPI NEUROLOGICAL/PSYCH: Negative except for HPI HEMATOLOGIC/LYMPHATIC: Negative except for HPI All Systems Negative, Except as noted above. 13 point review of systems assessed and all negative except for above. Physical Exam Physical Exam Dictation Vital Signs reviewed General Appearance: Alert, oriented x 3, no acute distress, well developed, nourished. Head and Face: non-traumatic. Eyes: PERRL, pink conjunctivas, eyelid no trauma, anterior chamber with arcus senilis. Ears: Pinnas intact and no signs of trauma or erythema ear canals clear and no discharge TM no erythema Nose: No discharge, no bleeding. Oropharynx: Mouth normal, tongue pink, pharynx clear,no erythema, tonsils no exudates, no abscesses noted, mucous membrane moist Neck: Supple, non-tender, no thyromegaly, no masses, no JVD, no bruits Breast:Deferred Chest:No tenderness, no crepitus, no paradoxical movement, no retractions Lungs:Clear, well-ventilated, symmetric, no rales, no wheezing, no rhonchi, no stridor, good breath sounds bilaterally Heart: Regular rate, regular rhythm, no murmur, no gallops Vascular: no peripheral edema, Abdomen: Soft, positive bowel sounds, nondistended, no guarding, nontender, no rebound, no masses no hepatomegaly, no splenomegaly, no Patrick's sign, no hernias. Rectal: Deferred Genital: Deferred Neurological: Normal speech, motor function intact, sensory function intact Musculoskeletal: Neck nontender, full range of motion, back nontender, full range of motion, Extremities: nontender, full range of motion Skin: Color pink, dry, no turgor, no rash, no lacerations, no abrasions, no contusions. Lymphatic: Deferred Results Laboratory and Microbiology Lab and Micro Result Laboratory Tests Test 12/09/24 10:14 12/09/24 10:34 White Blood Count 5.7 K/uL (4.8-10.8) Red Blood Count 5.41 MIL/uL (4.50-6.20) Hemoglobin 16.4 g/dL (14.0-18.0) Hematocrit 48.6 % (42-54) Mean Corpuscular Volume 89.8 fL (79-99) Mean Corpuscular Hemoglobin 30.3 pg (27.0-33.0) Mean Corpuscular Hemoglobin Concent 33.7 g/dL (32.0-36.0) Red Cell Distribution Width 13.0 % (11.0-15.5) Platelet Count 218 K/uL (130-400) Mean Platelet Volume 10.5 fL (7.5-10.5) Immature Granulocyte % (Auto) 0.4 % (0-1) Neutrophils (%) (Auto) 57.8 % (40.0-77.0) Lymphocytes (%) (Auto) 29.6 % (21.0-51.0) Monocytes (%) (Auto) 10.1 % (3.0-13.0) Eosinophils (%) (Auto) 1.6 % (0.0-8.0) Basophils (%) (Auto) 0.5 % (0.0-5.0) Neutrophils # (Auto) 3.3 K/uL (1.8-7.7) Lymphocytes # (Auto) 1.7 K/uL (1.0-4.8) Monocytes # (Auto) 0.6 K/uL (0.1-1.0) Eosinophils # (Auto) 0.09 K/uL (0.00-0.70) Basophils # (Auto) 0.03 K/uL (0.00-0.20) Absolute Immature Granulocyte (auto 0.02 K/uL (0-1) Nucleated Red Blood Cells 0.0 % (0.0-0.19) Sodium Level 140 mmol/L (136-145) Potassium Level 4.2 mmol/L (3.5-5.1) Chloride Level 102 mmol/L (101-111) Carbon Dioxide Level 31 mmol/L (21-32) Blood Urea Nitrogen 18 mg/dL (7-18) Creatinine 1.0 mg/dL (0.5-1.3) Glomerular Filtration Rate Calc 93 mL/min (>90) Random Glucose 99 mg/dL (70-105) Total Calcium 9.1 mg/dL (8.5-10.1) Magnesium Level 1.70 mg/dL (1.80-2.40) L Total Creatine Kinase 63 U/L (21-232) Troponin I High Sensitivity 7 ng/L (4-75) B-Type Natriuretic Peptide 17 pg/mL (0-100) Troponin I < 0.05 ng/mL (0.00-0.05) Labs Reviewed?: Yes EKG/XRAY/US/CT/MRI EKG Comment Date: December 09, 2024 Time: 10:22 a.m. Ventricular rate: 93 beats per minute [place] interval:160 QRS duration: 94 QT/QTc:345/430 EKG interpretation: Normal sinus rhythm with a ventricular rate of 93 beats per minute, no ST elevations, no bundle branch blocks Reviewed by ED Attending MDM MDM: Differential diagnosis: ACS, cardiac arrhythmia, pneumonia, pneumothorax There are no social concerns with this patient. Prescription drug management Prescriptions will include: None Medical management and examination interpretation discussions were had by me with other qualified healthcare professionals as indicated for the patient's care. ED Course Orders Procedure Category Date Status Time Vital Signs Per CPOE 12/09/24 Transmitted Routine 10:00 B-Type Natriuretic LAB 12/09/24 Complete Peptide 10:00 Chest 1vw RAD 12/09/24 Resulted 10:00 12 Lead Ekg Tracing- EKG 12/09/24 Complete Technical 10:00 Oxygen By Nc/Pulse Ox CPOE 12/09/24 Transmitted 10:00 Maintain Iv CPOE 12/09/24 Transmitted 10:00 Iv Insertion CPOE 12/09/24 Transmitted 10:00 Cardiac Monitoring CPOE 12/09/24 Transmitted 10:00 Pulse Oximetry With CPOE 12/09/24 Transmitted Vs And Prn 10:00 Cbc With Differential LAB 12/09/24 Complete 10:00 Activity: Br W/Brp CPOE 12/09/24 Transmitted With Assist 10:00 Creatine Kinase, Total LAB 12/09/24 Complete 10:00 Urinalysis Profile LAB 12/09/24 Logged 10:00 Troponin Poc Order LAB 12/09/24 Complete Only 10:00 Bedside Troponin-I LAB.ER 12/09/24 In Process (Poc) 10:00 Basic Metabolic Panel LAB 12/09/24 Complete 10:00 Troponin I High LAB 12/09/24 Complete Sensitivity 10:02 Magnesium LAB 12/09/24 Complete 10:00 Vital Signs Date Time Temp Pulse Resp B/P (MAP) Pulse Ox O2 Delivery O2 Flow Rate FiO2 12/09/24 10:05 98.6 94 20 165/110 99 Room Air 0 [facility] [address] [place] [id number] IMAGING REPORT Signed PATIENT: MECCA ALVARENGA MR#: [id number] : 1975 SEX: M AGE: 49 LOCATION: [facility] ORDER 1001 STATUS: REG ER REPORT#: [id number] SERVICE 1000 REASON: CHEST PAIN ORDERING PHYSICIAN: MARILYN ESPINOZA MD PROCEDURE: CXR1VW - CHEST 1VW CHEST 1VW REASON: CHEST PAIN COMPARISON: 02/20/2022 FINDINGS: Single view of the chest was obtained. Lungs are clear. Heart size is normal. There is no pulmonary vascular congestion. Mediastinum and bony thorax appear unremarkable. IMPRESSION: 1. Normal single view chest x-ray. DICTATED BY: DIMITRI ROSA MD DATE: 12/09/241123 ELECTRONICALLY SIGNED BY: DIMITRI ROSA MD DATE: 12/09/241126 HEART Score Response (Comments) Value History: Low suspicion (0) 0 EKG: Normal 0 Age: 45-65yrs (+1) 1 Risk Factors: 1-2 risk factors (+1) 1 Initial Troponin: Normal limit (0) 0 HEART Score Risk: Low Risk for MACE (1-3) Total 2 DX & DISP Disposition: Discharge Departure Impression: Primary Impression: Palpitations Condition: Stable Additional Instructions: Your blood work today is unremarkable. Your EKG does not show any evidence of a heart attack. Your chest x-ray is normal. This is your cardiac enzymes are negative. Please follow up with your process tech and primary care provider for further evaluation. Return to the ER if you develop any new or worsening symptoms Referrals: MELISSA BARBER MD (PCP) Time of Disposition: 12:24 I have reviewed the case, and I agree with, Diagnosis and Plan I performed the substantive portion of the visit. I have reviewed and personally made and approve the management plan that is documented in the note by myself or the NALINI. I acknowledge for responsibility for the patient's management plan. HERMILA AMBRIZ Dec 09, 2024 11:04
--- NOTE | 2024-12-09 11:27 | HMCIMG ---
CHEST 1VW REASON: CHEST PAIN COMPARISON: 02/20/2022 FINDINGS: Single view of the chest was obtained. Lungs are clear. Heart size is normal. There is no pulmonary vascular congestion. Mediastinum and bony thorax appear unremarkable. IMPRESSION: 1. Normal single view chest x-ray.
--- NOTE | 2024-12-09 12:53 | NUR ---
PT JUST NOW BEING PLACED IN [place] [id number]
[2024-12-09 13:16] VITALS: BP 135/91; PULSE 90; RESP 18; TEMP 98.6; O2SAT 94
[2024-12-09 13:23] LABS: APPEARANCE,URINE CLEAR (CLEAR); BILIRUBIN,URINE NEGATIVE (NEGATIVE); COLOR,URINE YELLOW (YELLOW); GLUCOSE, URINE (UA) NEGATIVE (NEGATIVE); KETONES,URINE NEGATIVE (NEGATIVE); LEUKOCYTE ESTERASE ,URINE NEGATIVE Leu/uL (NEGATIVE); NITRATE,URINE NEGATIVE (NEGATIVE); OCCULT BLOOD,URINE NEGATIVE (NEGATIVE); PH,URINE 6.5 (5.0-8.0); PROTEIN,URINE 50 mg/dL (NEGATIVE); UROBILINOGEN,URINE 0.2 mg/dL (0.2-1.0)
[2024-12-09 13:24] LABS: ADD UA MICROSCOPIC YES
[2024-12-09 13:33] LABS: MUCUS,URINE RARE LPF (None Seen); WBC,URINE 0-1 /HPF (0-1)
== END 2024-12-09 13:27 | disposition home or self-care (01) ==
LOC: EDH 09:59
DX: R00.2 Palpitations (principal); E11.9 Type 2 diabetes mellitus without complications; E78.00 Pure hypercholesterolemia, unspecified; I10 Essential (primary) hypertension; I21.9 Acute myocardial infarction, unspecified; I48.91 Unspecified atrial fibrillation; Z79.01 Long term (current) use of anticoagulants; Z79.82 Long term (current) use of aspirin; Z79.84 Long term (current) use of oral hypoglycemic drugs; Z79.899 Other long term (current) drug therapy; Z95.5 Presence of coronary angioplasty implant and graft; Z98.890 Other specified postprocedural states
CPT/HCPCS: 36415; 71045; 80048; 81001; 82550; 83735; 83880; 84484; 85025; 93005; 99284

== ENCOUNTER 2025-09-26 17:08 | Emergency (ER) | payer BC ==
[~2025-09-26] VITALS: Ht 182.9 cm; Wt 122.5 kg
[2025-09-26 17:32] LABS: APPEARANCE,URINE CLEAR (CLEAR); GLUCOSE, URINE (UA) 70 mg/dL (NEGATIVE); LEUKOCYTE ESTERASE ,URINE NEGATIVE Leu/uL (NEGATIVE); NITRATE,URINE NEGATIVE (NEGATIVE); OCCULT BLOOD,URINE NEGATIVE (NEGATIVE)
[2025-09-26 17:33] LABS: ADD UA MICROSCOPIC YES
[2025-09-26] MEDS: TRIAMCINOLONE ACETONIDE 40 MG/ML 1ML VIAL IM ONE (18:02)
[2025-09-26] MEDS: HYDROcodone/APAP 5/325 1 TAB TABLET PO ONE (18:03)
[2025-09-26] MEDS: LIDOCAINE 4% ADH..PATCH TP ONE (18:03)
[2025-09-26] MEDS: ORPHENADRINE 60MG/2ML IM ONE (18:03)
[2025-09-26] MEDS ORDERED: METH100054 PO (18:18)
[2025-09-26] MEDS ORDERED: LIDO1ADH82 TP (18:18)
[2025-09-26] MEDS ORDERED: KETO10TA2 PO (18:18)
--- NOTE | 2025-09-26 18:19 | ERN ---
ED Note History of Present Illness Stated Complaint: CHRONIC LOW BACK PAIN Chief Complaint: Back Pain-No Injury Time Seen by MD: 17:13 Time Seen by Midlevel: 17:18 Dictation: 50 Year old male complaining of left back pain radiating down to his glute and left leg. Patient states it has been ongoing for the last couple of months however has worsened in the last couple of days. Denies any new injury. Allergies: Coded Allergies: No Known Allergies (Unverified Allergy, Unknown, 08/17/18) No Known Drug Allergies (Unverified Allergy, Unknown, 09/27/19) Home Meds Active Scripts Amlodipine Besylate (Amlodipine Besylate) 5 Mg Tablet, 5 MG PO DAILY, #30 TAB 3 Refills Prov:AGGIE VELIZ MD 03/22/22 Metformin HCl (Metformin HCl) 500 Mg Tablet, 500 MG PO BID for 30 Days, TAB Prov:LAUREN KRAFT NP 08/20/18 Reported Medications Atorvastatin Calcium (LIPITOR) 40 Mg Tablet, 40 MG PO HS, TAB 03/20/22 Aspirin (ASPIRIN 81 MG ECTAB) 81 Mg Ectab, 81 MG PO DAILY, TAB.EC 03/20/22 Apixaban (Eliquis) 5 Mg Tablet, 5 MG PO BID, TAB 03/20/22 Metoprolol Succinate (Metoprolol Succinate) 100 Mg Tab.er.24h, 100 MG PO TID, TAB 03/20/22 Losartan Potassium (Losartan Potassium) 100 Mg Tablet, 100 MG PO DAILY, TAB 03/20/22 Past Medical History Past Medical History: A-Fib, Diabetes-Type II, High Cholesterol, Heart Disease, Hypertension Additional Past Medical Hx: CHRONIC BACK PAIN Surgical History: Other Surgical History Other: HEART STENTS, ABLATION Social History: Other Review of System Dictation General: awake, alert, NAD Head/Face: Normocephalic, atraumatic Eyes: PERRL, EOMI, vision at baseline ENT: oral cavity clear, TMs clear, no signs of infection Neck: Trachea midline, supple, no nuchal rigidity Cardiovascular: RRR, normal S1/S2, No MRGs, no JVD Respiratory: CTAB, no respiratory distress, No rales or wheezes Abdomen: Soft, non-tender, non-distended, normal bowel sounds, no guarding or rebound. Skin: Warm, dry, normal turgor, no rash, MS/Extremity: Pulses equal, no cyanosis, neurovascular intact, FROM, back pain Neuro: COAx4, GCS 15, strength 5/5, CN 2-12 intact, normal cerebellar exam, normal gait, Psych: Normal behavior, mood, and affect normal Review of Systems: was completed Initial Vital Sign VS Vital Signs Date Time Temp Pulse Resp B/P (MAP) Pulse Ox O2 Delivery O2 Flow Rate FiO2 09/26/25 17:10 97.9 98 16 128/91 99 Room Air 0 09/26/25 17:22 21 Physical Exam Dictation General: awake, alert, NAD Head/Face: Normocephalic, atraumatic Eyes: PERRL, EOMI, vision at baseline ENT: oral cavity clear, TMs clear, no signs of infection Neck: Trachea midline, supple, no nuchal rigidity Cardiovascular: RRR, normal S1/S2, No MRGs, no JVD Respiratory: CTAB, no respiratory distress, No rales or wheezes Abdomen: Soft, non-tender, non-distended, normal bowel sounds, no guarding or rebound. Skin: Warm, dry, normal turgor, no rash MS/Extremity: Pulses equal, no cyanosis, neurovascular intact, FROM wheezing up left back pain radiating down to with the his left glute and to his leg Neuro: COAx4, GCS 15, strength 5/5, CN 2-12 intact, normal cerebellar exam, normal gait, Psych: Normal behavior, mood, and affect normal Results (Laboratory/Radiology) Laboratory/Radiology Laboratory Tests Test 09/26/25 17:24 Urine Color YELLOW (YELLOW) Urine Appearance CLEAR (CLEAR) Urine pH 6.0 (5.0-8.0) Urine Specific [place] 1.025 (1.001-1.031) Urine Protein 10 mg/dL (NEGATIVE) H Urine Glucose (UA) 70 mg/dL (NEGATIVE) H Urine Ketones NEGATIVE mg/dL (NEGATIVE) Urine Occult Blood NEGATIVE (NEGATIVE) Urine Nitrate NEGATIVE (NEGATIVE) Urine Bilirubin NEGATIVE mg/dL (NEGATIVE) Urine Urobilinogen 0.2 mg/dL (0.2-1.0) Urine Leukocyte Esterase NEGATIVE Dilcia/uL Urine RBC 2-5 /HPF (0-1) H Urine WBC 0-1 /HPF (0-1) Urine Bacteria None /HPF (None Seen) Labs Reviewed?: Yes ED Course ED Course Orders Procedure Category Date Status Time Urinalysis Profile LAB 09/26/25 Complete 17:21 Triamcinolone Acet PHA 09/26/25 Complete 40mg/Ml 1ml (Kenalog 17:30 Orphenadrine Citrate PHA 09/26/25 Complete (Norflex) 17:30 Ketorolac PHA 09/26/25 Complete Tromethamine 15mg/Ml 17:30 Hydrocodone/Apap PHA 09/26/25 Complete 5/325 ([place] 5/325mg) 17:30 Lidocaine (Lidocaine PHA 09/26/25 Complete Patch 4%) 18:00 Current Medications Medications (Trade) Dose Ordered Sig/Yazmin Route PRN Reason Start Time Stop Time Status Last Admin Dose Admin Acetaminophen/ Hydrocodone Bitart (NORco 5/325MG) 1 tab ONCE ONCE PO 09/26/25 17:30 09/26/25 17:31 DC 09/26/25 18:03 Ketorolac Tromethamine (toRADol) 15 mg ONCE ONCE IM 09/26/25 17:30 09/26/25 17:31 DC 09/26/25 18:03 Lidocaine (Lidocaine Patch 4%) 1 each ONCE ONCE TP 09/26/25 18:00 09/26/25 18:01 DC 09/26/25 18:03 Orphenadrine Citrate (Norflex) 60 mg ONCE ONCE IM 09/26/25 17:30 09/26/25 17:31 DC 09/26/25 18:03 Triamcinolone Acetonide (Kenalog 40) 40 mg ONCE ONCE IM 09/26/25 17:30 09/26/25 17:31 DC 09/26/25 18:02 Vital Signs Date Time Temp Pulse Resp B/P (MAP) Pulse Ox O2 Delivery O2 Flow Rate FiO2 09/26/25 17:22 97.9 98 16 128/91 99 Room Air* 0 21 09/26/25 17:10 97.9 98 16 128/91 99 Room Air 0 Medical Decision Making MDM MDM: 50 Year old male complaining of left back pain radiating down to his glute and left leg. Patient states it has been ongoing for the last couple of months however has worsened in the last couple of days. Denies any new injury. States he took one Advil prior to arrival. Discussed that he has been seen by his PCP in the past and they have told him that he needs an MRI. Patient denies having any numbness, tingling, unilateral weakness, incontinence, saddle paresthesias. UA shows no hematuria, likely to be a kidney stone. After pain medication patient will be discharged home to follow up with PCP. Discussed with the patient on red flag symptoms of when to return back to the emergency room. Differential diagnosis:, urinary tract infection, sciatica, muscle spasm Rationale: Tests considered and ordered secondary to shared decision making include: Previous outside records reviewed: Old ER visits. Risk of complication and/or morbidity or mortality of patient management: None Medications-Per medication reconciliation Need for hospitalization: Patient does not meet criteria for hospitalization. Need for emergency major/minor surgery: No There are no social concerns with this patient. Prescription drug management Prescriptions will include symptomatic care Patient's prior external medical records from other ER visits were reviewed by me as indicated. Prior testing and results from previous visits were reviewed. Prior tests were taken into account with medical decision making and resource utilization, independent historian/historians were used to obtain complete medical history. I independently interpreted the test that were performed, results were reviewed by me and considered findings on radiology if ordered. Medical management and examination interpretation discussions were had by me with other qualified healthcare professionals as indicated for the patient's care. DX & DISP Disposition: Discharge Departure Impression: Primary Impression: Back pain Condition: Stable Scripts Methocarbamol (Methocarbamol) 1,000 Mg Tablet 1000 MG PO TID PRN for MUSCLE SPASMS for 3 Days, #9 TAB Prov: BEATRIZ MARQUEZ CNP 09/26/25 Lidocaine (Lidocaine) 4 % Adh..patch 1 PATCH TP DAILY for 10 Days, #10 PATCH 0 Refills Prov: BEATRIZ MARQUEZ CNP 09/26/25 Ketorolac Tromethamine (Ketorolac Tromethamine) 10 Mg Tablet 1 TAB PO Q6HPRN PRN for pain for 5 Days, #20 TAB 0 Refills Prov: BEATRIZ MARQUEZ CNP 09/26/25 Additional Instructions: Up with your primary care provider for further evaluation. Return to the hospital if you have any unilateral weakness, tingling, incontinence. Referrals: MAIRA AMBRIZ MD (PCP) Time of Disposition: 18:17 I have reviewed the case, and I agree with, Diagnosis and Plan BEATRIZ MARQUEZ CNP Sep 26, 2025 18:19
[2025-09-26 18:21] VITALS: BP 131/90; PULSE 92; RESP 16; TEMP 97.9; O2SAT 96
== END 2025-09-26 18:31 | disposition home or self-care (01) ==
LOC: EDH 17:08
DX: M54.50 Low back pain, unspecified (principal); I48.91 Unspecified atrial fibrillation; E11.9 Type 2 diabetes mellitus without complications; E78.00 Pure hypercholesterolemia, unspecified; G89.29 Other chronic pain; I11.9 Hypertensive heart disease without heart failure; Z79.84 Long term (current) use of oral hypoglycemic drugs; Z79.82 Long term (current) use of aspirin; Z79.899 Other long term (current) drug therapy; Z79.01 Long term (current) use of anticoagulants; Z95.5 Presence of coronary angioplasty implant and graft
CPT/HCPCS: 99284; 81001; 96372 ×3; J1885; J3301; J2360

== ENCOUNTER 2025-09-29 22:48 | Observation (INO) | payer BC ==
[~2025-09-29] VITALS: Ht 180.3 cm; Wt 123.9 kg
[~2025-09-29 22:48] MED LIST changes: +KETO10TA2 PO; +LIDO1ADH82 TP; +METH100054 PO
[2025-09-30 01:46] LABS: IMMATURE GRANULOCYTE ABSOLUTE 0.02 K/uL (0-1); NUCLEATED RED BLOOD CELLS 0.0 % (0.0-0.19); PLATELET COUNT (AUTO) 198 K/uL (130-400); RED BLOOD CELL COUNT(AUTO) 4.90 MIL/uL (4.50-6.20); RED CELL DISTRIBUTION WIDTH 13.4 % (11.0-15.5); WHITE BLOOD COUNT (AUTO) 6.7 K/uL (4.8-10.8)
[2025-09-30 01:56] LABS: CREATININE 0.9 mg/dL (0.5-1.3); GLOMERULAR FILTR. RATE CALC 105.0 mL/min (>90); GLUCOSE,RANDOM 87.0 mg/dL (70-105); SODIUM SERUM 135.0 mmol/L (136-145); UREA NITROGEN, BLOOD 30.0 mg/dL (7-18)
[2025-09-30 01:57] LABS: INR 1.12 (0.85-1.15)
--- NOTE | 2025-09-30 04:04 | HMCIMG ---
EXAM: CT Abdomen and Pelvis without IV contrast CLINICAL HISTORY: Renal calculus. TECHNIQUE: Thin collimated axial CT images of the abdomen and pelvis were obtained with sagittal and coronal reformatted images also submitted. CT scan is done according to ALARA (As Low As Reasonably Achievable). CONTRAST: None. COMPARISON: None. FINDINGS: The included lungs are clear. Calcified granulomas in the liver and spleen. No focal abnormality within the gallbladder, pancreas, or adrenals. 0.2 cm nonobstructive calculus around the left renal lower pole. No ureteral calculus or hydronephrosis bilaterally. 0.8 cm hypodense cystic structure around the left renal lower pole. Unremarkable urinary bladder. The prostate is normal in size. Nonspecific degenerative calcifications within the prostate. No obvious bowel wall thickening, dilatation, or obstruction. Unremarkable appendix. A component of mild constipation is present in the colon. Uncomplicated colonic diverticula. Mild calcific atherosclerotic disease in the abdominal aorta and its branches. No pathological lymphadenopathy in the abdomen or pelvis. No ascites or pneumoperitoneum. No acute bony abnormality is evident. IMPRESSIONS: No acute process in the abdomen or pelvis. Nonobstructive left renal calculus. No ureteral calculus or hydronephrosis bilaterally. Left renal cortical cyst. Calcified granulomas in the liver and spleen. A component of mild constipation is present in the colon. Uncomplicated colonic diverticula. /Ronny
--- NOTE | 2025-09-30 04:21 | ERN ---
General Chief Complaint: Back Pain-No Injury Stated Complaint: C/O LOWER BACK PAIN Time Seen by MD: 02:30 History of Present Illness Initial Comments 50-year-old male came in back pain. Allergies: Coded Allergies: No Known Allergies (Unverified Allergy, Unknown, 08/17/18) No Known Drug Allergies (Unverified Allergy, Unknown, 09/27/19) Home Meds Active Scripts Methocarbamol (Methocarbamol) 1,000 Mg Tablet, 1000 MG PO TID PRN for MUSCLE SPASMS for 3 Days, #9 TAB Prov:BEATRIZ MARQUEZ [employer]P [employer] 09/26/25 Lidocaine (Lidocaine) 4 % Adh..patch, 1 PATCH TP DAILY for 10 Days, #10 PATCH 0 Refills Prov:BEATRIZ MARQUEZ [employer]P [employer] 09/26/25 Ketorolac Tromethamine (Ketorolac Tromethamine) 10 Mg Tablet, 1 TAB PO Q6HPRN PRN for pain for 5 Days, #20 TAB 0 Refills Prov:BEATRIZ MARQUEZ [employer]P [employer] 09/26/25 Amlodipine Besylate (Amlodipine Besylate) 5 Mg Tablet, 5 MG PO DAILY, #30 TAB 3 Refills Prov:AGGIE VELIZ MD 03/22/22 Metformin HCl (Metformin HCl) 500 Mg Tablet, 500 MG PO BID for 30 Days, TAB Prov:LAUREN KRAFT NP 08/20/18 Reported Medications Atorvastatin Calcium (LIPITOR) 40 Mg Tablet, 40 MG PO HS, TAB 03/20/22 Aspirin (ASPIRIN 81 MG ECTAB) 81 Mg Ectab, 81 MG PO DAILY, TAB.EC 03/20/22 Apixaban (Eliquis) 5 Mg Tablet, 5 MG PO BID, TAB 03/20/22 Metoprolol Succinate (Metoprolol Succinate) 100 Mg Tab.er.24h, 100 MG PO TID, TAB 03/20/22 Losartan Potassium (Losartan Potassium) 100 Mg Tablet, 100 MG PO DAILY, TAB 03/20/22 Past Medical History Past Medical History: Diabetes-Type II, High Cholesterol, Hypertension Medical History Other: CHRONIC BACK PAIN Past Surgical History: Other Surgical History Other: CARDIAC STENT; ABLATION X 2 Social History Social History: Other ROS Dictation Back pain Physical Exam General Appearance: (+) no apparent distress Orientation: (+) alert, (+) oriented x 3 Respiratory: (+) chest non-tender, (+) lungs clear Heart: (+) regular, (+) no gallop Gastrointestinal: (+) soft, (+) non-tender, (+) no organomegaly, (+) bowel sound present Results Laboratory and Microbiology Lab and Micro Result Laboratory Tests Test 09/30/25 01:38 White Blood Count 6.7 K/uL (4.8-10.8) Red Blood Count 4.90 MIL/uL (4.50-6.20) Hemoglobin 15.0 g/dL (14.0-18.0) Hematocrit 45.2 % (42-54) Mean Corpuscular Volume 92.2 fL (79-99) Mean Corpuscular Hemoglobin 30.6 pg (27.0-33.0) Mean Corpuscular Hemoglobin Concent 33.2 g/dL (32.0-36.0) Red Cell Distribution Width 13.4 % (11.0-15.5) Platelet Count 198 K/uL (130-400) Mean Platelet Volume 11.0 fL (7.5-10.5) H Immature Granulocyte % (Auto) 0.3 % (0-1) Neutrophils (%) (Auto) 52.0 % (40.0-77.0) Lymphocytes (%) (Auto) 34.9 % (21.0-51.0) Monocytes (%) (Auto) 10.9 % (3.0-13.0) Eosinophils (%) (Auto) 1.6 % (0.0-8.0) Basophils (%) (Auto) 0.3 % (0.0-5.0) Neutrophils # (Auto) 3.5 K/uL (1.8-7.7) Lymphocytes # (Auto) 2.3 K/uL (1.0-4.8) Monocytes # (Auto) 0.7 K/uL (0.1-1.0) Eosinophils # (Auto) 0.11 K/uL (0.00-0.70) Basophils # (Auto) 0.02 K/uL (0.00-0.20) Absolute Immature Granulocyte (auto 0.02 K/uL (0-1) Nucleated Red Blood Cells 0.0 % (0.0-0.19) Prothrombin Time 11.7 SEC (9.6-11.6) H Prothromb Time International Ratio 1.12 (0.85-1.15) Activated Partial Thromboplast Time 22.3 SEC (26.3-35.5) L Sodium Level 135 mmol/L (136-145) L Potassium Level 4.8 mmol/L (3.5-5.1) Chloride Level 100 mmol/L (101-111) L Carbon Dioxide Level 28 mmol/L (21-32) Blood Urea Nitrogen 30 mg/dL (7-18) H Creatinine 0.9 mg/dL (0.5-1.3) Glomerular Filtration Rate Calc 105 mL/min (>90) Random Glucose 87 mg/dL (70-105) Total Calcium 9.3 mg/dL (8.5-10.1) Troponin I High Sensitivity 8 ng/L (4-75) MDM MDM: Differential diagnosis: Rationale: Tests considered and ordered secondary to shared decision making include: labs, ECG and radiology Previous outside records reviewed: Old ER visits. Risk of complication and/or morbidity or mortality of patient management: None Medications-Per medication reconciliation Need for hospitalization: Patient does meet criteria for hospitalization. Need for emergency major/minor surgery: No There are no social concerns with this patient. Prescription drug management Prescriptions will include symptomatic care Patient's prior external medical records from other ER visits were reviewed by me as indicated. Prior testing and results from previous visits were reviewed. Prior tests were taken into account with medical decision making and resource utilization, independent historian/historians were used to obtain complete medical history. I independently interpreted the test that were performed, results were reviewed by me and considered findings on radiology if ordered. Medical management and examination interpretation discussions were had by me with other qualified healthcare professionals as indicated for the patient's care. ED Course Orders Procedure Category Date Status Time 12 Lead Ekg Tracing- EKG 09/30/25 Logged Technical 01:20 Cbc With Differential LAB 09/30/25 Complete 01:20 Basic Metabolic Panel LAB 09/30/25 Complete 01:20 Pt And Ptt LAB 09/30/25 Complete 01:20 Troponin I High LAB 09/30/25 Complete Sensitivity 01:20 Urinalysis LAB 09/30/25 Logged W/Microscopic 01:20 Morphine 2mg Syg PHA 09/30/25 Complete (Morphine 2mg Syg) 01:30 Ketorolac PHA 09/30/25 Complete Tromethamine 30mg/Ml 01:30 Ondansetron 4mg Inj PHA 09/30/25 Complete (Zofran 4mg Inj) 01:30 Morphine 2mg Syg PHA 09/30/25 Complete (Morphine 2mg Syg) 01:30 Urinalysis Profile LAB 09/30/25 Logged 01:21 Ct Abdomen/Pelvis W/O CT 09/30/25 Resulted Contrast 01:46 Current Medications Medications (Trade) Dose Ordered Sig/Yazmin Route PRN Reason Start Time Stop Time Status Last Admin Dose Admin Ketorolac Tromethamine (toRADol) 30 mg ONCE ONCE IVP 09/30/25 01:30 09/30/25 01:31 DC 09/30/25 01:34 Morphine Sulfate (morPHINE 2MG SYG) 2 mg ONCE ONCE IVP 09/30/25 01:30 09/30/25 01:26 DC Morphine Sulfate (morPHINE 2MG SYG) 2 mg ONCE ONCE IVP 09/30/25 01:30 09/30/25 01:31 DC 09/30/25 01:34 Ondansetron HCl (zoFRAN 4MG INJ) 4 mg ONCE ONCE IVP 09/30/25 01:30 09/30/25 01:31 DC 09/30/25 01:34 Vital Signs Date Time Temp Pulse Resp B/P (MAP) Pulse Ox O2 Delivery O2 Flow Rate FiO2 09/30/25 00:27 98.4 87 18 149/102 98 Room Air* 0 21 09/29/25 22:50 97.9 91 20 165/107 98 Room Air DX & DISP Disposition: Inpatient Departure Impression: Primary Impression: Intractable back pain Condition: Stable Referrals: [facility] (PCP) AL WALTON MD Sep 30, 2025 04:21
--- NOTE | 2025-09-30 05:04 | EKG ---
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1975 Requested By: AL WALTON Order Number: [id number] Reading MD: Va Lui Measurements Intervals [place] Rate: 85 P: 64 MA: 229 QRS: 15 QRSD: 94 T: 40 QT: 354 QTc: 421 Interpretive Statements Sinus rhythm Ventricular premature complex Prolonged MA interval Low voltage, precordial leads ST elev, probable normal early repol pattern Compared to ECG 12/09/2024 10:22:43 Ventricular premature complex(es) now present First degree AV block now present Low QRS voltage now present ST (T wave) deviation now present Myocardial infarct finding no longer present Electronically Signed On 10-01-2025 12:33:59 [employer] CHIE[employer] ENGINE[employer] by Va Lui Please click the below link to view image of tracing.
--- NOTE | 2025-09-30 05:30 | HP ---
[facility] PH[facility] Date of Service: Sep 30, 2025 Time of Service: 05:03 PCP: Perfecto SUAREZ HISTORY OF PRESENT ILLNESS: This is a 50-year-old male who works at a [employer] with past medical history of kidney stone, atrial fib/atrial flutter with ablation, hypertension, diabetes , hyperlipidemia , mild cardiomyopathy and coronary artery disease with cardiac stent x1 who presents to the ED for complaints of low back pain which started last Sunday. Patient reports was seen in this ER September 26, 2025 for similar complaints and was sent home with prescription. Today patient reports that pain came back on to left lower back no associated symptoms Seen and examined patient in the ER awake alert and coherent appears comfortable. Patient denies fever, chills, nausea, vomiting, chest pain, palpitation and shortness of breaths.Latest V/S T98.4,HR 87, BP 149/102 Sat 98% RA Labs :CBC unremarkable . Sodium 135, chloride 100, BUN 30 rest of the chemistries normal. Urinalysis remarkable for urine protein 10, urine glucose 70 RBC 2-[address] abdomen and pelvis without contrast revealed acute process abdomen or pelvis. Nonobstructive left renal calculus no ureteral calculus or hydronephrosis bilaterally. Left renal cortical cyst. Calcified granulomas in the liver and spleen. Component of mild constipation is present in the colon .Uncomplicated colonic diverticula . EKG result revealed sinus rhythm heart rate 85 ventricular premature complex and prolonged [place] interval low voltage precordial leads ST-elevation probable normal early repolarization pattern. While in the ER patient received morphine 2 mg IV, Zofran 4 mg IV Toradol 30 mg IV. We will admit patient for further medical management. REVIEW OF SYSTEMS CONSTITUTIONAL: Denies fevers, chills, or night sweats. No unintentional weight loss reported. NEUROLOGICAL: Denies headache, amaurosis fugax, motor weakness, sensory deficit, vertigo/spinning sensation, gait abnormalities, or tremors. ENT: No hearing loss, otalgia, otorrhea, rhinitis, rhinorrhea, hoarseness, or sore throat. CARDIOVASCULAR: Denies any exertional angina, dyspnea on exertion, orthopnea, paroxysmal nocturnal dyspnea, palpitations, life-threatening arrhythmias, claudication. PULMONARY: Denies any shortness of breath, cough, phlegm/sputum, hemoptysis, pleuritic chest pain. SLEEP: Denies morning headaches, daytime somnolence or napping. Denies difficulty falling asleep, staying asleep, waking from sleep. Denies knowledge of snoring. GASTROINTESTINAL: Denies any type of dysphagia to either liquids or solids. Denies nausea, vomiting, pyrosis, early satiety, abdominal pain, diarrhea, constipation, or changes in stool consistency or caliber. Denies coffee-ground emesis, hematemesis, hematochezia, or melanotic stools. GENITOURINARY: Complain of left lower back pain Denies frequency, urgency, nocturia, hematuria or incontinence (Storage/Irritative symptoms.) Low urinary stream, straining to void, urinary intermittency or hesitancy, splitting of the voiding stream, terminal dribbling. ENDOCRINOLOGIC: Denies polyuria, polydipsia, polyphagia or heat/cold intolerances. HEMATOLOGIC: Denies thrombophilia/previous clots, or coagulopathy/bleeding disorders. ONCOLOGIC: Denies personal history of malignancy. DERMATOLOGIC: Denies rashes or pruritus. PSYCHIATRIC: Denies any suicidal or homicidal ideation. Denies hallucinations. PAST MEDICAL HISTORY: [ kidney stone, atrial fib/atrial flutter with ablation, hypertension, diabetes , hyperlipidemia , mild cardiomyopathy and coronary artery disease with cardiac stent x1 ] PAST SURGICAL HISTORY: [ Cardiac stent x1, cardiac ablation in 2017 and 2019 ] PAST SOCIAL HISTORY: [ Patient lives alone. Patient works withdrawal. Patient denies alcohol, cigarette and recreational drug use] FAMILY HISTORY: [Diabetes, hypertension, Chronic obstructive pulmonary disease and cardiovascular disease ] Coded Allergies: No Known Allergies (Unverified Allergy, Unknown, 08/17/18) No Known Drug Allergies (Unverified Allergy, Unknown, 09/27/19) PHYSICAL EXAM GENERAL APPEARANCE: The patient is awake, alert, and oriented, in no acute cardiopulmonary distress. NEUROLOGICAL: Cranial nerves II-XII grossly intact. Motor is 5/5 in bilateral upper and lower extremities proximal to distal. No sensory deficits. HEENT: Face is symmetric. Pupils are equal and reactive. Extraocular movements are intact. NECK: Supple. No JVD. No thyromegaly. No submental, submandibular, pre- /postauricular, occipital or supraclavicular lymphadenopathy. CHEST: Normal chest expansion. No Telemetry. LUNGS: Absence of any rales, rhonchi or any wheezing. CARDIOVASCULAR: Regular. S1 and S2 normal. No appreciable rubs, murmurs or gallops. ABDOMEN: Soft, nontender, and nondistended. There is no rebound, voluntary guarding, or rigidity. : Deferred. No Vásquez. EXTREMITIES: Non-edematous and not cyanotic. No clubbing. Good capillary refill. SKIN: No skin breakdown. Vital Sign (Last 24 Hours) 09/30/25 00:27 Temp 98.4 Pulse 87 Resp 18 B/P (MAP) 149/102 Pulse Ox 98 O2 Delivery Room Air* O2 Flow Rate 0 FiO2 21 LABS: Laboratory: Test 09/30/25 01:38 Range/Units White Blood Count 6.7 4.8-10.8 K/uL Red Blood Count 4.90 4.50-6.20 MIL/uL Hemoglobin 15.0 14.0-18.0 g/dL Hematocrit 45.2 42-54 % Mean Corpuscular Volume 92.2 79-99 fL Mean Corpuscular Hemoglobin 30.6 27.0-33.0 pg Mean Corpuscular Hemoglobin Concent 33.2 32.0-36.0 g/dL Red Cell Distribution Width 13.4 11.0-15.5 % Platelet Count 198 130-400 K/uL Mean Platelet Volume 11.0 H 7.5-10.5 fL Immature Granulocyte % (Auto) 0.3 0-1 % Neutrophils (%) (Auto) 52.0 40.0-77.0 % Lymphocytes (%) (Auto) 34.9 21.0-51.0 % Monocytes (%) (Auto) 10.9 3.0-13.0 % Eosinophils (%) (Auto) 1.6 0.0-8.0 % Basophils (%) (Auto) 0.3 0.0-5.0 % Neutrophils # (Auto) 3.5 1.8-7.7 K/uL Lymphocytes # (Auto) 2.3 1.0-4.8 K/uL Monocytes # (Auto) 0.7 0.1-1.0 K/uL Eosinophils # (Auto) 0.11 0.00-0.70 K/uL Basophils # (Auto) 0.02 0.00-0.20 K/uL Absolute Immature Granulocyte (auto 0.02 0-1 K/uL Nucleated Red Blood Cells 0.0 0.0-0.19 % Prothrombin Time 11.7 H 9.6-11.6 SEC Prothromb Time International Ratio 1.12 0.85-1.15 Activated Partial Thromboplast Time 22.3 L 26.3-35.5 SEC Sodium Level 135 L 136-145 mmol/L Potassium Level 4.8 3.5-5.1 mmol/L Chloride Level 100 L 101-111 mmol/L Carbon Dioxide Level 28 21-32 mmol/L Blood Urea Nitrogen 30 H 7-18 mg/dL Creatinine 0.9 0.5-1.3 mg/dL Glomerular Filtration Rate Calc 105 >90 mL/min Random Glucose 87 70-105 mg/dL Total Calcium 9.3 8.5-10.1 mg/dL Troponin I High Sensitivity 8 4-75 ng/L DIAGNOSTICS / RADIOLOGY: [ ] ASSESSMENT: Intractable lower back pain POA Nonobstructive left renal calculus per CT POA Left renal cortical cyst per CT POA Calcified granulomas in the liver and spleen per CT POA Hypertension POA Diabetes POA Hyperlipidemia POA Atrial/a flutter on Eliquis POA Cardiomyopathy POA Coronary artery disease with cardiac stent x1 POA PLAN: We will admit patient in medical surgical We will start on heart healthy diet We will start NS @ 100 ml / hr x 1 bag and re evaluate Start on famotidine 20 mg p.o. daily for GI prophylaxis We will replace electrolytes as needed per protocol We will start on insulin sliding scale AC & HS with hypoglycemia protocol We will add prn medication for fever,pain,cough , nausea and vomiting We will reconcile home meds once medlist available We will seek Urology consultation We will request labs in am Further orders to follow depending on above results Case discussed with attending physician and came up with above treatment and plan of care. ADVANCED CARE PLANNING 1. Which of the following were discussed? Hospice Care - No Therapeutic options - Yes Advance Directives - No Other discussions - 2. Discussed with who? Patient 3. Voluntary nature of this service was explained to the patient? Yes 4. Amount of time spent - __22 min 5. Reviewed by Physician? (if this service was performed by NPP) Yes Patient seen and examined by me. Agree with note by CARDIOVASCULAR OR NURSE SEE ADDITIONAL ORDERS PER CHART DISCUSSED WITH NURSING STAFF DEVAN BEAUCHAMPP Sep 30, 2025 05:30
[2025-09-30] MEDS: 0.9%NACL 1000ML 1,000 ML IV SCH (05:45)
[2025-09-30 06:07] VITALS: BP 154/101; PULSE 80; RESP 20; TEMP 97.4
[2025-09-30 08:00] VITALS: BP 131/97; PULSE 82; RESP 18; TEMP 97.3; O2SAT 95
--- NOTE | 2025-09-30 09:26 | NUR ---
DCP:HOME Pt currently lives alone in her home. Pt denies having any DME, home health, or provider services. Pt states that he is able to complete ADLs, home management, and meals on his own. PCP is [facility] and uses [facility] for any RX needs. At DC pt will want to go home and family can assist with transportation.
[2025-09-30] MEDS: FAMOTIDINE 20MG TAB PO SCH (09:45)
[2025-09-30 12:00] VITALS: BP 139/91; PULSE 95; RESP 16; TEMP 97.6
[2025-09-30 16:00] VITALS: BP 132/92; PULSE 72; RESP 18; TEMP 97.7
[2025-09-30 20:00] VITALS: BP 136/80; PULSE 93; RESP 18; TEMP 97.3; O2SAT 100
[2025-10-01] VITALS: BP 155/96; PULSE 97; RESP 16; TEMP 97.5
[2025-10-01 04:00] VITALS: BP 145/89; PULSE 95; RESP 16; TEMP 97.5
[2025-10-01 06:09] LABS: IMMATURE GRANULOCYTE ABSOLUTE 0.02 K/uL (0-1); NUCLEATED RED BLOOD CELLS 0.0 % (0.0-0.19); PLATELET COUNT (AUTO) 205 K/uL (130-400); RED BLOOD CELL COUNT(AUTO) 4.94 MIL/uL (4.50-6.20); RED CELL DISTRIBUTION WIDTH 13.4 % (11.0-15.5); WHITE BLOOD COUNT (AUTO) 6.4 K/uL (4.8-10.8)
[2025-10-01 06:28] LABS: ASPARTATE AMINOTRANSFERASE 18.0 U/L (10-37); CREATININE 0.9 mg/dL (0.5-1.3); GLOMERULAR FILTR. RATE CALC 105.0 mL/min (>90); GLUCOSE,RANDOM 87.0 mg/dL (70-105); SODIUM SERUM 138.0 mmol/L (136-145); TOTAL PROTEIN, SERUM 7.5 g/dL (6.0-8.3); UREA NITROGEN, BLOOD 17.0 mg/dL (7-18)
[2025-10-01 07:47] VITALS: BP 145/93; PULSE 95; RESP 18; TEMP 97.7
[2025-10-01 08:00] VITALS: O2SAT 99
[2025-10-01] MEDS ORDERED: DEXTROSE 50%-WATER 50 ML DISP.SYRIN IV PRN (08:00)
[2025-10-01] MEDS ORDERED: GLUCAGON 1MG KIT 1 MG ML IM PRN (08:00)
--- NOTE | 2025-10-01 10:24 | PN ---
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 He was evaluated in his room for persistent, recurrent left lower back pain that began last Sunday. He was previously seen in the emergency department on 09/26/25 for similar symptoms. The patient continues to deny associated symptoms such as fever, chills, nausea, vomiting, chest pain, palpitations, or shortness of breath. ] REVIEW OF SYSTEMS CONSTITUTIONAL: Denies fevers, chills, or night sweats. No unintentional weight loss reported. NEUROLOGICAL: Denies headache, amaurosis fugax, motor weakness, sensory deficit, vertigo/spinning sensation, gait abnormalities, or tremors. ENT: No hearing loss, otalgia, otorrhea, rhinitis, rhinorrhea, hoarseness, or sore throat. CARDIOVASCULAR: Denies any exertional angina, dyspnea on exertion, orthopnea, paroxysmal nocturnal dyspnea, palpitations, life-threatening arrhythmias, claudication. PULMONARY: Denies any shortness of breath, cough, phlegm/sputum, hemoptysis, pleuritic chest pain. SLEEP: Denies morning headaches, daytime somnolence or napping. Denies difficulty falling asleep, staying asleep, waking from sleep. Denies knowledge of snoring. GASTROINTESTINAL: Denies any type of dysphagia to either liquids or solids. Denies nausea, vomiting, pyrosis, early satiety, abdominal pain, diarrhea, constipation, or changes in stool consistency or caliber. Denies coffee-ground emesis, hematemesis, hematochezia, or melanotic stools. GENITOURINARY: Complain of left lower back pain Denies frequency, urgency, nocturia, hematuria or incontinence (Storage/Irritative symptoms.) Low urinary stream, straining to void, urinary intermittency or hesitancy, splitting of the voiding stream, terminal dribbling. ENDOCRINOLOGIC: Denies polyuria, polydipsia, polyphagia or heat/cold intolerances. HEMATOLOGIC: Denies thrombophilia/previous clots, or coagulopathy/bleeding disorders. ONCOLOGIC: Denies personal history of malignancy. DERMATOLOGIC: Denies rashes or pruritus. PSYCHIATRIC: Denies any suicidal or homicidal ideation. Denies hallucinations. PHYSICAL EXAM GENERAL APPEARANCE: The patient is awake, alert, and oriented, in no acute cardiopulmonary distress. NEUROLOGICAL: Cranial nerves II-XII grossly intact. Motor is 5/5 in bilateral upper and lower extremities proximal to distal. No sensory deficits. HEENT: Face is symmetric. Pupils are equal and reactive. Extraocular movements are intact. NECK: Supple. No JVD. No thyromegaly. No submental, submandibular, pre- /postauricular, occipital or supraclavicular lymphadenopathy. CHEST: Normal chest expansion. No Telemetry. LUNGS: Absence of any rales, rhonchi or any wheezing. CARDIOVASCULAR: Regular. S1 and S2 normal. No appreciable rubs, murmurs or gallops. ABDOMEN: Soft, nontender, and nondistended. There is no rebound, voluntary guarding, or rigidity. : Deferred. No Vásquez. EXTREMITIES: Non-edematous and not cyanotic. No clubbing. Good capillary refill. SKIN: No skin breakdown. Vital Signs (last 8hr) Date Time Temp Pulse Resp B/P (MAP) Pulse Ox O2 Delivery O2 Flow Rate FiO2 10/01/25 08:00 99 Room Air* 0 21 10/01/25 07:47 97.7 95 18 145/93 99 Room Air 21 10/01/25 04:00 97.5 95 16 145/89 98 Room Air LABS: Laboratory: Test 10/01/25 05:55 09/30/25 01:38 Range/Units White Blood Count 6.4 4.8-10.8 K/uL Red Blood Count 4.94 4.50-6.20 MIL/uL Hemoglobin 14.9 14.0-18.0 g/dL Hematocrit 44.8 42-54 % Mean Corpuscular Volume 90.7 79-99 fL Mean Corpuscular Hemoglobin 30.2 27.0-33.0 pg Mean Corpuscular Hemoglobin Concent 33.3 32.0-36.0 g/dL Red Cell Distribution Width 13.4 11.0-15.5 % Platelet Count 205 130-400 K/uL Mean Platelet Volume 10.3 7.5-10.5 fL Immature Granulocyte % (Auto) 0.3 0-1 % Neutrophils (%) (Auto) 59.4 40.0-77.0 % Lymphocytes (%) (Auto) 29.5 21.0-51.0 % Monocytes (%) (Auto) 8.7 3.0-13.0 % Eosinophils (%) (Auto) 1.6 0.0-8.0 % Basophils (%) (Auto) 0.5 0.0-5.0 % Neutrophils # (Auto) 3.8 1.8-7.7 K/uL Lymphocytes # (Auto) 1.9 1.0-4.8 K/uL Monocytes # (Auto) 0.6 0.1-1.0 K/uL Eosinophils # (Auto) 0.10 0.00-0.70 K/uL Basophils # (Auto) 0.03 0.00-0.20 K/uL Absolute Immature Granulocyte (auto 0.02 0-1 K/uL Nucleated Red Blood Cells 0.0 0.0-0.19 % Sodium Level 138 136-145 mmol/L Potassium Level 4.0 3.5-5.1 mmol/L Chloride Level 102 101-111 mmol/L Carbon Dioxide Level 30 21-32 mmol/L Blood Urea Nitrogen 17 7-18 mg/dL Creatinine 0.9 0.5-1.3 mg/dL Glomerular Filtration Rate Calc 105 >90 mL/min Random Glucose 87 70-105 mg/dL Total Calcium 8.3 L 8.5-10.1 mg/dL Total Bilirubin 0.7 0.2-1.0 mg/dL Aspartate Amino Transf (AST/SGOT) 18 10-37 U/L Alanine Aminotransferase (ALT/SGPT) 32 12-78 U/L Alkaline Phosphatase 75 50-136 U/L Total Protein 7.5 6.0-8.3 g/dL Albumin 3.7 3.5-5.0 g/dL Prothrombin Time 11.7 H 9.6-11.6 SEC Prothromb Time International Ratio 1.12 0.85-1.15 Activated Partial Thromboplast Time 22.3 L 26.3-35.5 SEC Troponin I High Sensitivity 8 4-75 ng/L Current Medications Medications (Trade) Dose Ordered Sig/Yazmin Route PRN Reason Start Time Stop Time Status Last Admin Dose Admin Acetaminophen (TYLenol 325MG TAB) 650 mg Q6H PRN PO MILD PAIN (1-3) 09/30/25 14:30 10/30/25 14:29 Dextrose (D50w) 50 ml AD PRN IV HYPOGLYCEMIA PROTOCOL 10/01/25 08:00 10/31/25 07:59 Famotidine (Pepcid 20mg Tab) 20 mg DAILY PO 09/30/25 09:00 10/30/25 08:59 10/01/25 08:40 20 MG Glucagon (Glucagon 1mg Kit) 1 mg AD PRN IM HYPOGLYCEMIA PROTOCOL 10/01/25 08:00 10/31/25 07:59 Morphine Sulfate (morPHINE 2MG SYG) 2 mg Q4H PRN IV MODERATE PAIN (4-6) 09/30/25 05:30 09/30/25 22:36 DC 09/30/25 19:44 2 MG Morphine Sulfate (morPHINE 4MG SYG) 2 mg Q4H PRN IVP SEVERE PAIN (7-10) 09/30/25 23:00 10/07/25 22:59 10/01/25 05:59 2 MG Sodium Chloride 1,000 ml @ 100 mls/hr Q10H IV 09/30/25 05:30 10/30/25 05:29 09/30/25 15:37 100 MLS/HR Tamsulosin HCl (FloMAX) 0.4 mg DAILY PO 10/01/25 09:00 10/31/25 08:59 10/01/25 08:41 0.4 MG DIAGNOSTICS / RADIOLOGY: [ ] ASSESSMENT: Intractable left lower back/flank pain (likely renal colic, nonobstructive stone) Nonobstructive left renal calculus Left renal cortical cyst Hypertension Diabetes mellitus Hyperlipidemia Atrial fibrillation/flutter (on Eliquis) Mild cardiomyopathy CAD (s/p stent) Calcified granulomas (liver, spleen) PLAN: Continue close monitoring for signs of infection or obstruction Maintain adequate hydration Monitor renal function and electrolytes Adjust pain management as needed Follow up with Urology for definitive management of renal calculus and cyst Continue to address comorbid conditions per protocol Repeat labs tomorrow Continue with GI and DVT prophylaxis Discussed with Dr. Ng, above plan was formulated ATTESTATION BY PHYSICIAN I have seen and examined the patient. I reviewed the documentation, medical decision making, and treatment plan as noted by the mid-level provider above. I agree with the findings and plan of care. MARTHA NG MD,GERARDO MORENOCNP Oct 01, 2025 10:24
[2025-10-01] MEDS: 0.9%NACL 1000ML 1,000 ML IV SCH (10:39)
[2025-10-01] MEDS: ENOXAPARIN SODIUM 40 MG/0.4 ML SYRINGE SQ ONE (11:18)
[2025-10-01 11:42] VITALS: BP 140/91; PULSE 96; RESP 16; TEMP 97.6
[2025-10-01] MEDS ORDERED: PHEN-847 PO (14:22)
[2025-10-01] MEDS ORDERED: IBUP-2076 PO (14:22)
--- NOTE | 2025-10-01 14:29 | DS ---
Discharge Summary Hospital Course Summary: Mr. Jorge is a 50-year-old male with a history of kidney stones, atrial fibrillation/flutter (s/p ablation), hypertension, diabetes mellitus, hyperlipidemia, mild cardiomyopathy, and coronary artery disease (s/p stent), who presented with recurrent, intractable left lower back/flank pain. He was previously evaluated in the ED on 09/26/25 for similar symptoms and discharged with outpatient management. On this admission, he denied fever, chills, nausea, vomiting, chest pain, palpitations, or shortness of breath. Physical exam was unremarkable except for left lower back pain. He remained hemodynamically stable throughout his stay. Workup included: Labs: CBC, CMP, and urinalysis were largely unremarkable except for mild proteinuria and glucosuria on urinalysis, and a transiently elevated BUN (normalized with hydration). No leukocytosis or evidence of infection. Imaging: CT abdomen/pelvis without contrast showed a nonobstructive left renal calculus, left renal cortical cyst, calcified granulomas in the liver and spleen, mild constipation, and uncomplicated colonic diverticula. No hydronephrosis or ureteral obstruction. EKG: Sinus rhythm, prolonged AK interval, low voltage precordial leads, and early repolarization pattern. Hospital management included: IV fluids for hydration Pain control with IV morphine, transitioned to oral analgesics as pain improved Initiation of tamsulosin for medical expulsive therapy GI prophylaxis with famotidine DVT prophylaxis as per protocol Sliding scale insulin for glycemic control Monitoring of renal function and electrolytes Urology consult placed for outpatient follow-up The patients pain improved significantly with conservative management. He remained afebrile, with stable vital signs and no evidence of infection or obstruction. Renal function and electrolytes remained stable. Discharge Condition Pain: Subsided, tolerating oral intake, ambulating independently. Vitals: Stable No signs of infection or obstruction. Discharge Medications Ibuprofen 400 mg PO every 6 hours as needed for pain Phenazopyridine (Pyridium) 200 mg PO every 8 hours for 3 days for urinary discomfort Continue home medications as previously prescribed. Discharge Instructions Follow up with Urology as scheduled for further evaluation and management of renal calculus and cyst. Follow up with PCP in 23 days for ongoing management of comorbidities and to review hospital course. Hydration: Encourage increased oral fluid intake unless otherwise contraindicated. Pain: Use prescribed medications as needed. Avoid NSAIDs if any signs of GI upset or renal dysfunction. Warning signs: Return to the ED for fever, chills, persistent vomiting, inability to tolerate oral intake, worsening pain, hematuria, dysuria, or any new concerning symptoms. Patient verbalized understanding of discharge instructions and the importance of follow-up. 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 No evidence of urinary tract infection or obstruction was found during this admission. Admitting diagnoses Intractable left lower back/flank pain (likely renal colic, nonobstructive stone) Nonobstructive left renal calculus Left renal cortical cyst Hypertension Diabetes mellitus Hyperlipidemia Atrial fibrillation/flutter (on Eliquis) Mild cardiomyopathy CAD (s/p stent) Calcified granulomas (liver, spleen) Discharge Instructions: Discharge Instructions Follow up with Urology as scheduled for further evaluation and management of renal calculus and cyst. Follow up with PCP in 23 days for ongoing management of comorbidities and to review hospital course. Hydration: Encourage increased oral fluid intake unless otherwise contraindicated. Pain: Use prescribed medications as needed. Avoid NSAIDs if any signs of GI upset or renal dysfunction. Warning signs: Return to the ED for fever, chills, persistent vomiting, inability to tolerate oral intake, worsening pain, hematuria, dysuria, or any n ew concerning symptoms. Home Medications: Active Scripts Amlodipine Besylate (Amlodipine Besylate) 5 Mg Tablet, 5 MG PO DAILY, #30 TAB 3 Refills Prov:AGGIE VELIZ MD 03/22/22 Metformin HCl (Metformin HCl) 500 Mg Tablet, 500 MG PO BID for 30 Days, TAB Prov:LAUREN KRAFT NP 08/20/18 Reported Medications Atorvastatin Calcium (LIPITOR) 40 Mg Tablet, 40 MG PO HS, TAB 03/20/22 Aspirin (ASPIRIN 81 MG ECTAB) 81 Mg Ectab, 81 MG PO DAILY, TAB.EC 03/20/22 Metoprolol Succinate (Metoprolol Succinate) 100 Mg Tab.er.24h, 100 MG PO BID, TAB 03/20/22 Losartan Potassium (Losartan Potassium) 100 Mg Tablet, 100 MG PO DAILY, TAB 03/20/22 Discontinued Reported Medications Apixaban (Eliquis) 5 Mg Tablet, 5 MG PO BID, TAB 03/20/22 Discontinued Scripts Methocarbamol (Methocarbamol) 1,000 Mg Tablet, 1000 MG PO TID PRN for MUSCLE SPASMS for 3 Days, #9 TAB Prov:[facility] 09/26/25 Lidocaine (Lidocaine) 4 % Adh..patch, 1 PATCH TP DAILY for 10 Days, #10 PATCH 0 Refills Prov:[facility] 09/26/25 Ketorolac Tromethamine (Ketorolac Tromethamine) 10 Mg Tablet, 1 TAB PO Q6HPRN PRN for pain for 5 Days, #20 TAB 0 Refills Prov:[facility] 09/26/25 New Medications: Ibuprofen (Ibuprofen) 400 Mg Tablet 1 TAB PO Q6HPRN PRN for pain or fever for 5 Days, #20 TAB 0 Refills Phenazopyridine HCl (Pyridium) 200 Mg Tab 1 TAB PO TID for urinary discomfort for 3 Days, #9 TAB 0 Refills after food Continued Medications: Amlodipine Besylate (Amlodipine Besylate) 5 Mg Tablet 5 MG PO DAILY, #30 TAB 3 Refills Aspirin (Aspirin 81 Mg Ectab) 81 Mg Ectab 81 MG PO DAILY, TAB.EC Atorvastatin Calcium (Lipitor) 40 Mg Tablet 40 MG PO HS, TAB Losartan Potassium (Losartan Potassium) 100 Mg Tablet 100 MG PO DAILY, TAB Metformin HCl (Metformin HCl) 500 Mg Tablet 500 MG PO BID for 30 Days, TAB Metoprolol Succinate (Metoprolol Succinate) 100 Mg Tab.er.24h 100 MG PO BID, TAB Time spent arranging discharge: 31-60 minutes ATTESTATION BY PHYSICIAN I have seen and examined the patient. I reviewed the documentation, medical decision making, and treatment plan as noted by the mid-level provider above. I agree with the findings and plan of care. MARTHA NG MD, [facility] Oct 01, 2025 14:29
[2025-10-01 14:44] LABS: APPEARANCE,URINE CLEAR (CLEAR); GLUCOSE, URINE (UA) 300 mg/dL (NEGATIVE); LEUKOCYTE ESTERASE ,URINE NEGATIVE Leu/uL (NEGATIVE); NITRATE,URINE NEGATIVE (NEGATIVE); OCCULT BLOOD,URINE NEGATIVE (NEGATIVE)
[2025-10-01 14:57] LABS: ADD UA MICROSCOPIC YES
[2025-10-01 14:58] LABS: SQUAMOUS EPITHELIAL CELL,UR RARE /HPF (0-2)
[2025-10-01 16:00] VITALS: BP 148/102; PULSE 98; RESP 20; TEMP 98
--- NOTE | 2025-10-01 16:20 | NUR ---
DISCHARGE INSTRUCTIONS GIVEN TO PATIENT. EDUCATED PATIENT ON MEDICATIONS AND INFORMED HIM TO FACTORY HAND MEDICATIONS AT PHARMACY. INFORMED HIM TO FOLLOW UP WITH PCP AND UROLOGY. IV LINE REMOVED. ALL BELONGINGS ARE WITH PATIENT.
[2025-10-02] MEDS ORDERED: ENOXAPARIN SODIUM 40 MG/0.4 ML SYRINGE SQ SCH (09:00)
[2025-10-02] MEDS ORDERED: ASPIRIN 81 MG EC TAB PO SCH (09:00)
[2025-10-02] MEDS ORDERED: amLODIPine 5 MG TAB PO SCH (09:00)
== END 2025-10-01 16:20 | disposition home or self-care (01) ==
LOC: EDH 22:48 → EDHIP 09-30 05:30 → INTOOBSV 09-30 05:30 → 1MS 09-30 06:01
PROVIDERS: ADMIT Internal Medicine; ATTEND Internal Medicine
DX: N20.0 Calculus of kidney (principal); N28.1 Cyst of kidney, acquired; M54.50 Low back pain, unspecified; I10 Essential (primary) hypertension; I48.91 Unspecified atrial fibrillation; I42.9 Cardiomyopathy, unspecified; E11.9 Type 2 diabetes mellitus without complications; E78.00 Pure hypercholesterolemia, unspecified; I25.10 Atherosclerotic heart disease of native coronary artery without angina pectoris; Z95.5 Presence of coronary angioplasty implant and graft; Z79.899 Other long term (current) drug therapy; Z98.890 Other specified postprocedural states
CPT/HCPCS: 99284; 96374; 96376 ×2; 96361 ×2; 96375; 84484; 80048; 85025 ×2; 85610; 85730; 36415 ×2; 74176; 93005; 96372; 80053; 81001; G0378 ×35; J2270 ×6; J2405; J1885; J1650; 99285